=== PATIENT | female | born 1970 | race Caucasian/White ===

== ENCOUNTER 2023-09-01 16:55 | Emergency (ER) | payer BC, SELFPAY ==
--- NOTE | 2023-09-01 17:02 | ED_ITS ---
HPI - General Adult General Chief complaint: Urogenital Problems, Female Stated complaint: menstrual bleeding Time Seen by Provider: 09/01/23 16:56 History of Present Illness HPI narrative: Very pleasant 53-year-old female who has a past medical history notable for breast cancer (diagnosed 2 years ago, apparently had an isolated lump in 1 breast. Was estrogen receptor positive. Patient elected for bilateral mastectomy and hormonal therapy. Did not require radiation or chemo. Thought to be in remission. Due for her next 6 month check in November). She did develop what she thought was menopause 2 years ago after she started doing hormone shots for her breast cancer. She has not had a period in over a year. She is Otherwise healthy. She presents to the ER today with heavy reddish vaginal bleeding ongoing now for 4 days. She does note that her [place] [address] daughters came home a few days ago and they were having menstrual cycle so she wonders if [place] exposure to them might have triggered. For her. She has developed up. That is much heavier than normal for her. Started on Tuesday. She soaking through at least 1 pad per hour. In addition to that she had been having a lot of pelvic cramping with that is actually getting better today. She is starting to feel little bit lightheaded and a little bit weak. 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 No other unusual bleeding or bruising. No history of coagulopathy. She is not anticoagulated. she is on tamoxifen. No history of cervical cancer. Family history of breast cancer and endometrial cancer. Related Data Previous Rx's Medication Instructions Recorded tranexamic acid 650 mg tablet 1,300 mg (2 x 650 mg) PO TID #20 09/01/23 tabs Allergies Allergy/AdvReac Type Severity Reaction Status Date / Time No Known Drug Allergies Allergy Verified 09/01/23 17:10 PFSH PFSH Social History Smoking Status: Never smoker Do you use any of these nicotine containing products: None How often do you have a drink containing alcohol: never How often do you have six or more drinks on one occasion: Never AUDIT-C Alcohol total score: 0 Non-prescribed substance use: denies use Exam Narrative: Exam Narrative: Constitutional: Appears well-developed and well-nourished. Alert. Conversant. Non toxic. HENT: Head: Atraumatic. Nose: Nose normal. Mouth/Throat: Oral mucosa is clear and moist. no trismus. Eyes: Conjunctivae normal. EOM normal. Pupils equal, round, and reactive to light. No scleral icterus. Neck: Normal range of motion. Neck supple. No tracheal deviation present. Cardiovascular: Normal rate, regular rhythm. No gallop. No friction rub. No murmur heard. Pulmonary/Chest: Effort normal. No stridor. No respiratory distress. No wheezes. No rales. No rhonchi . Abdominal: Soft. No distension. No mass. No tenderness. No rebound. No guarding. Musculoskeletal: RUE: Normal range of motion. No tenderness. No deformity LUE: Normal range of motion. No tenderness. No deformity RLE: Normal range of motion. No edema. No tenderness. No deformity LLE: Normal range of motion. No edema. No tenderness. No deformity Pelvic: Performed with female solar system installer. Normal external genitalia. Normal vaginal mucosa. Cervix closed. No bleeding. No cervicitis. Neurological: Alert and oriented to person, place, and time. Normal strength. CN II-VII intact. No sensory deficit. GCS eye subscore is 4. GCS verbal subscore is 5. GCS motor subscore is 6. Normal coordination Skin: Perhaps palm and tongue are slightly pale but overall warm and brisk cap refill. No pallor or mottling. Skin is warm and dry. No rash noted. No pallor. Normal capillary refill. Psychiatric: Normal mood. Normal affect. Const: Vital Signs, click to edit/add: Vital Signs - 24 hr 09/01/23 17:05 Temperature 98.4 F Pulse Rate [Right Pulse Oximeter] 93 Respiratory Rate 16 Blood Pressure [Ri ght Upper Arm] 165/95 H Pulse Oximetry 98 Oxygen Delivery Me thod Room Air Course Vital Signs Vital signs: Initial Vital Signs Temperature 98.4 F 09/01/23 17:05 Temperature Source Temporal Artery Scan 09/01/23 17:05 Pulse Rate 93 09/01/23 17:05 Pulse Rhythm Regular 09/01/23 17:05 Pulse Strength 3+ Normal 09/01/23 17:05 Respiratory Rate 16 09/01/23 17:05 Blood Pressure 165/95 H 09/01/23 17:05 Blood Pressure Mean 118 H 09/01/23 17:05 Blood Pressure Position Sitting 09/01/23 17:05 Pulse Oximetry 98 09/01/23 17:05 Oxygen Delivery Method Room Air 09/01/23 17:05 Vital Signs Temperature 98.4 F 09/01/23 17:05 Pulse Rate 93 09/01/23 17:05 Respiratory Rate 16 09/01/23 17:05 Blood Pressure 165/95 H 09/01/23 17:05 Pulse Oximetry 98 09/01/23 17:05 Oxygen Delivery Method Room Air 09/01/23 17:05 Temperature 98.4 F 09/01/23 17:05 Pulse Rate 93 09/01/23 17:05 Respiratory Rate 16 09/01/23 17:05 Blood Pressure 165/95 H 09/01/23 17:05 Pulse Oximetry 98 09/01/23 17:05 Oxygen Delivery Method Room Air 09/01/23 17:05 Medications Administered Medications: Discontinued Medications Generic Name Dose Route Start Last Admin Trade Name Freq PRN Reason Stop Dose Admin Tranexamic Acid 1,000 mg 09/01/23 20:07 09/01/23 20:25 Tranexamic Acid 100 Mg/Ml Inj IV 09/01/23 20:08 1,000 mg ONCE ONE Administration Medical Decision Making MDM Narrative Medical decision making narrative: 53-year-old female with a history of breast cancer status post bilateral mastectomy and on tamoxifen therapy, presenting to the ER today with a 4 day history of heavy vaginal bleeding. She has stopped having menstrual cycles a couple of years ago after she initiated her hormone therapy for her breast cancer. She does endorse fairly heavy vaginal bleeding soaking through 1 pad every hour for the past couple of days. Fortunately she is hemodynamically stable and well-appearing. Her mental status is normal and her skin is pink and well perfused. Laboratory testing shows hemoglobin in the low normal range at 12.3. She is not thrombocytopenic or coagulopathic. No anticoagulant use. No family history of bleeding disorders. Pelvic exam confirms endocervical source of blood. No evidence for any cervical lesions or cancers. Pelvic ultrasound does confirm a very thickened endometrial lining at 22 mm. Discussed with on-call radio sportscaster, Dr. Forrester. At this point she and I agree that the patient is hemodynamically stable and safe to discharge from the ER tonight but will need close outpatient follow up in the community placement worker clinic. She will likely need endometrial sampling to rule out endometrial cancer as a cause for bleeding. At this point will hold off on hormonal therapy to treat the vaginal bleeding since she does have estrogen sensitive breast cancer history and we do not know the progesterone receptor status of her breast cancer. Instead will treat with TXA. 1 g IV given here in the ER. She will continue TXA 1.3 g p.o. t.i.d. for vaginal bleeding. Until follow-up with community placement worker. [facility] will contact her tomorrow morning to arrange that follow-up appointment. Precautions for return to the ER reviewed. Lab Data Labs: Lab Results 09/01/23 Range/Units 17:30 WBC 6.40 (4.50-11.00) K/uL RBC 4.22 (4.00-5.20) m/uL Hgb 12.3 (12.0-16.0) gm/dL Hct 37.2 (33.0-51.0) % MCV 88 (80-100) fL MCH 29 (26-34) pg MCHC 33 (32-36) gm/dL RDW Coeff of Dorcas 13.1 (11.5-15.5) % Plt Count 205 (140-440) K/uL Neut % (Auto) 60.4 (42.0-72.0) % Lymph % (Auto) 29.2 (20-44) % Antelope % (Auto) 7.3 (0.0-11.0) % Eos % (Auto) 2.3 (0.0-7.0) % Baso % (Auto) 0.6 (0.0-3.0) % Neut # (Auto) 3.86 (1.7-7.0) K/uL Lymph # (Auto) 1.87 (0.90-2.90) K/uL Antelope # (Auto) 0.50 (0.00-0.90) K/UL Eos # (Auto) 0.15 (0.00-0.50) K/uL Baso # (Auto) 0.04 (0.00-0.30) K/uL Abs Immat Gran (auto) 0.01 (0.00-0.30) K/uL Imm/Tot Granulo (auto) 0.2 % INR 0.91 (0.91-1.10) HCG, Qual Negative (Negative) Blood Type A Negative Antibody Screen NEGATIVE Imaging Data US Pelvic: Attestation: I have reviewed the pertinent imaging results. Radiologist's impression: IMPRESSION: 1. Abnormally thickened vascular endometrium measuring 22 mm. This could be due to malignancy or hyperplasia. Recommend gynecologic consult. 2. Uterus is prominent in size for patient age. Subserosal fibroid in the uterine fundus. 3. Nonvisualization of the right ovary. Discharge Plan Discharge Clinical Impression: Abnormal uterine bleeding Patient Disposition: Home, Self-Care Condition: Stable Instructions: Abnormal (Dysfunctional) Uterine Bleeding (ED) Additional Instructions: As we discussed, please come back to the ER right away if you have any problems- especially if you have heavier bleeding, worsening lightheaded or dizziness, fever, or if you have any other concerns You should receive a phone call tomorrow morning from the gynecology clinic to set up an appointment to be seen tomorrow for a recheck. You will likely need an endometrial biopsy and further testing. If you do not receive a phone call by noon tomorrow, you can call the [facility] [phone] to arrange a follow-up. You can use tranexamic acid to help slow the bleeding until your follow-up. Prescriptions: New tranexamic acid 650 mg tablet 1,300 mg PO TID Qty: 20 0RF Follow Up/Referrals: Any Anne MD [Primary Care Provider] - Stand Alone Forms: [employer] Info Instructions
[2023-09-01 17:05] VITALS: BP 165/95; PULSE 93; RESP 16; TEMP 36.9; O2SAT 98; BMI 32.3
--- NOTE | 2023-09-01 17:09 | US_ITS ---
Patient: DAQUAN SOLANO CORDELL Facility:?[facility] Patient ID:?[id number] Site Patient ID:?[id number] Site :?[id number] Study:?US-Pelvis PELVIS TV-09/01/2023 6:11:10 PM Ordering Physician:?INNA BHANDARI M.D. Final Report: INDICATION: Postmenopausal bleeding. COMPARISON: None. TECHNIQUE: 2D mora scale and color Doppler images were acquired of the pelvis using a transvaginal approach. FINDINGS: The uterus is retroverted in position and measures 10.0 cm in length by 6.1 cm in AP diameter by 5.9 cm in transverse dimension. There is a 2.2 cm subserosal fibroid in the uterine fundus. The endometrial lining measures 22 mm in composite thickness with scattered vascularity. There is a small amount of complex fluid within the fundal endometrium. The right ovary was not visualized. The left ovary measures 3.3 x 1.8 x 2.4 cm. No free fluid in the pelvic cul-de-sac. IMPRESSION: 1. Abnormally thickened vascular endometrium measuring 22 mm. This could be due to malignancy or hyperplasia. Recommend gynecologic consult. 2. Uterus is prominent in size for patient age. Subserosal fibroid in the uterine fundus. 3. Nonvisualization of the right ovary. Dictated by Amy Acosta MD @ 09/01/2023 7:26:03 PM Signed by:?Aym Acosta MD @09/01/2023 7:26:03 PM (Electronic Signature)
[2023-09-01 17:51] LABS: Basophils Absolute Auto 0.04 K/uL (0.00-0.30); Basophils Percent Auto 0.6 % (0.0-3.0); Eosinophils Absolute Auto 0.15 K/uL (0.00-0.50); Eosinophils Percent Auto 2.3 % (0.0-7.0); Hematocrit 37.2 % (33.0-51.0); Hemoglobin* 12.3 gm/dL (12.0-16.0); Immature Granulocytes Abs Auto 0.01 K/uL (0.00-0.30); Immature Granulocytes Pct Auto 0.2 %; Lymphocytes Absolute Auto 1.87 K/uL (0.90-2.90); Lymphocytes Percent Auto 29.2 % (20-44); Mean Corpuscular HGB Conc 33 gm/dL (32-36); Mean Corpuscular Hemoglobin 29 pg (26-34); Mean Corpuscular Volume 88 fL (80-100); Monocytes Percent Auto 7.3 % (0.0-11.0); Neutrophils Absolute Auto 3.86 K/uL (1.7-7.0); Neutrophils Percent Auto 60.4 % (42.0-72.0); Platelet Count* 205 K/uL (140-440); RDW Coefficient of Variation % 13.1 % (11.5-15.5); Red Blood Count 4.22 m/uL (4.00-5.20)
[2023-09-01 18:00] LABS: Slide Review Reflex No
[2023-09-01 18:09] LABS: INR 0.91 (0.91-1.10); Prothrombin Time 12.8 Seconds
[2023-09-01 18:24] LABS: HCG Qualitative Serum* Negative (Negative)
[2023-09-01] MEDS: TRANEXAMIC ACID 100 MG/ML INJ 1000 MG IV (20:25)
== END 2023-09-01 20:47 | disposition home or self-care (01) ==
PROVIDERS: Emergency Provider Emergency Medicine; PCP Family Medicine
DX: N93.9 Abnormal uterine and vaginal bleeding, unspecified (principal)
CPT/HCPCS: 36415; 76830; 84703; 85025; 85610; 86850; 86900; 86901; 99283

== ENCOUNTER 2023-09-20 06:54 | Day surgery (SDC) | payer BC, SELFPAY ==
--- OUTSIDE RECORDS SUMMARY | 2023-09-20 06:56 | XMS_ITS | Encounter Summary ---
Author Name Unknown Organization [facility] Address [address] [place] [address] Care Team Providers Care Rod Filler Name Role Phone Elsewhere, Pcp Primary Care Provider Unavailabl e Reason for Visit * Reason Comments Arm Pain Left bicep/shoulder pain. Left bicep is bigger compared to right side. 10/16 pain Encounter Details Date Type Department Care Team (Late st Contact Info) Description 06/18/2023 9:58 AM INSURANCE ACCOUNT ASSISTANT - 06/18/2023 10:39 AM INSURANCE ACCOUNT ASSISTANT Emergency [facility] [address] [place] [phone] Kenyon Cagle, ERIBERTO, C.N.P., D.N.P. [address] [place] [phone] Pain Arm Left (Primary Dx) Discharge Disposition: Acute Care Hospital Social History Tobacco Use Types Packs/Day Years Used Date Smoking Tobacco: Never Smokeless Tobacco: Never Alcohol Use Standard Drinks/Week Comments Yes 0 (1 standard drink = 0.6 oz pure alcohol) Once in awhile - if we go out to dinner Humiliation, Afraid, Rape, and Kick questionnair e Answer Date Recorded Within the last year, have y ou been afraid of your partner or ex-partner? No 11/23/2021 Within the last year, have y ou been humiliated or emotionally abused in other ways by your partner or ex-partner? No Within the last year, have y ou been kicked, hit, slapped, or otherwise physically hurt by your partner or ex-partner? No 11/23/2021 Within the last year, have y ou been raped or forced to have any kind of sexual activity by your partner or ex-partner? No 11/23/2021 Social Connection and Isolation Panel [NHANES] A nswer Date Recorded In a typical week, how many times do you talk on the phone with family, friends, or neighbors? Once a week 11/23/2021 How often do you get togethe r with friends or relatives? Once a week 11/23/2021 How often do you attend alevism or temple serv ices? Patient declined 11/23/2021 Do you belong to any clubs o r organizations such as alevism groups, unions, fraternal or athletic groups, or school groups? No 11/23/2021 How often do you attend meet ings of the clubs or organizations you belong to? Patient declined 11/23/2021 Are you , , di vorced, , never , or living with a partner? 11/23/2021 AUDIT-C Answer Date Recorded Q1: How often do you have a drink containing alc ohol? 2-4 times a month 11/23/2021 Q2: How many drinks containi ng alcohol do you have on a typical day when you are drinking? 1 or 2 11/23/2021 Q3: How often do you have si x or more drinks on one occasion? Never 11/23/2021 Overall Financial Resource Strain (CARDIA) Answe r Date Recorded How hard is it for you to pa y for the very basics like food, housing, medical care, and heating? Not very hard 11/23/2021 [facility] - Occupational Stress Questionnaire Answer Date Recorded Do you feel stress - tense, restless, nervous, or anxious, or unable to sleep at night because your mind is troubled all the time - these days? Only a little 11/23/2021 Exercise Vital Sign Answer Date Recorde d On average, how many days pe r week do you engage in moderate to strenuous exercise (like a brisk walk)? 4 days 11/23/2021 On average, how many minutes do you engage in exercise at this level? 10 min 11/23/2021 Hunger Vital Sign Answer Date Recorded Within the past 12 months, y ou worried that your food would run out before you got the money to buy more. Never true 11/24/19 22 Within the past 12 months, t he food you bought just didn't last and you didn't have money to get more. Never true 11/23/2021 PRAPARE - Transportation Answer Date Re corded In the past 12 months, has l ack of transportation kept you from medical appointments or from getting medications? No 11/06 In the past 12 months, has l ack of transportation kept you from meetings, work, or from getting things needed for daily living? No 11/23/2021 Housing Stability Vital Sign Answer Babatunde e Recorded In the last 12 months, was t here a time when you were not able to pay the mortgage or rent on time? No 11/23/2021 In the last 12 months, how many places have you lived? 1 11/23/2021 In the last 12 months, was t here a time when you did not have a steady place to sleep or slept in a halfway (including now)? No 11/23/2021 Nutrition Answer Date Recorded Nutrition: EVOO Fat Source Yes 11/23 On average, how many serving s of fruits and vegetables do you eat per day (serving size is equal to 1 cup or approximately the size of a tennis ball)? 2-3 11/23/2021 Dental Answer Date Recorded Dental: Regular Dentist No 09/15/19 21 Employment Answer Date Recorded Employment status Employed and actively working without restrictions 11/23/2021 Education Answer Date Recorded What is the highest level of school you have completed or the highest degree you have received? Associate degree: academic program 11/23/2021 Sex and Gender Information Value Date Recorded Sex Assigned at Female 01/05/2021 12:58 PM CDT Gender Identity Female 11/18/2020 7:00 AM CDT Sexual Orientation Straight 09/10/2020 4: 34 PM CDT documented as of this encounter Last Filed Vital Signs Vital Sign Reading Time Taken Comments Blood Pressure 133/74 06/18/2023 10:37 AM INSURANCE ACCOUNT ASSISTANT Pulse 100 06/18/2023 10:37 AM INSURANCE ACCOUNT ASSISTANT Temperature 36.4 ??C (97.5 ??F) 06/18/2023 10:[address] Respiratory Rate 18 06/18/2023 10:37 AM INSURANCE ACCOUNT ASSISTANT Oxygen Saturation 99% 06/18/2023 10:07 AM INSURANCE ACCOUNT ASSISTANT Inhaled Oxygen Concentration - - Weight 91 kg (200 lb 9.9 oz) 06/18/2023 10:07 AM INSURANCE ACCOUNT ASSISTANT Height - - Body Mass Index 31.6 05/12/2023 2:17 PM INSURANCE ACCOUNT ASSISTANT documented in this encounter Medications at Time of Discharge Medication Sig Dispensed Refills Start Date End Date B complex-vitamin (SUPER B-50) capsule Take 1 capsule by mouth daily. 07/28/2020 cholecalciferol (VITAMIN D3) 50 mcg (2,000 Unit) capsule Take 2,000 Units by mouth daily. 06/16/2020 cyanocobalamin (VITAMIN B12) 1,000 mcg tablet Take 1,000 mcg by mouth daily. HERBAL DRUGS ORAL Take 2 tablets by mouth daily. Black Seed Oil MAGNESIUM ORAL Take 1 tablet by mouth daily. omega 9-ibl-avo-fish oil 1,000 mg (120 mg-180 mg) capsule Take 1 capsule by mouth daily. 07/28/2020 tamoxifen (NOLVADEX) 20 mg tabletIndications:Malign ant Neoplasm Of Breast Female Right (HCC) Take 2 tablets (40 mg total) by mouth daily. 180 tablet 3 04/25/2023 documented as of this encounter ED Notes * Kenyon Cagle APRN, C.N.P., D.N.P. - 06/18/2023 10:03 AM CST Images from the original note were not included. CHIEF COMPLAINT/REASON FOR VISIT Arm Pain (Left bicep/shoulder pain. Left bicep is bigger compared to right side. 10/16 pain) HISTORY OF PRESENT ILLNESS Patient with a history of breast cancer status post bilateral removal with subsequent reconstruction, heart murmur, obesity presents to the emergency department with complaints of shoulder pain. PATIENT STATES SHE WAS BOXING FOR 30 MINUTES ON TUESDAY WHILE WORKING OUT. SHE IS DONE THIS IN THEPAST AND NEVER HURT HER SHOULDER. THE REST OF TUESDAY AND TUESDAY HER SHOULDER ACTUALLY FELT OKAY, AND THEN TUESDAY AFTERNOON AND EVENING SHE NOTICED that her left shoulder/axillary region was painfuland she was having some difficulty raising her arm. Tuesday she would increase in pain and she was having trouble lifting the Sanchez. It continued until today when she noticed some swelling on the left.Patient does have a history of lymphedema but this is always been bilateral in her left arm patientstates is larger than her right arm. Most of the pain seems to be centered in the axillary region and then down the inner arm not the actual shoulder joint itself. Patient denies any fever, chills, sweats or any other constitutional symptoms. History provided by: Patient patient registration specialist needed/used: no REVIEW OF SYSTEMS Constitutional: Negative for chills, diaphoresis, fatigue and fever. HENT: Negative for sinus pressure and sore throat. Respiratory: Negative for cough, chest tightness and shortness of breath. Cardiovascular: Negative for chest pain. Gastrointestinal: Negative for abdominal pain, constipation, diarrhea, nausea and vomiting. Genitourinary: Negative for dysuria, frequency and urgency. Musculoskeletal: Positive for extremity pain. Negative for arthralgias and myalgias. Skin: Negative for rash. Neurological: Negative for dizziness, weakness and headaches. Hematological: Negative for adenopathy. Does not bruise/bleed easily. All other systems reviewed and are negative. Allergies Reviewed in medical record Current Medications Reviewed in Medical Record. PAST HISTORY Medical Past Medical History: Diagnosis Date Cancer Breast Personal History 07/18/2020 Malignant Primary Neoplasm (Unknown Site) Unspecified (HCC) Murmur Heart Patient Active Problem List Diagnosis Malignant Neoplasm Of Breast Female Right (HCC) Absence Of Breast Acquired Bilateral Murmur Heart Obesity Body Mass Index 30-39.9 Adult Surgical Past Surgical History: Procedure Laterality Date BIOPSY SENTINEL LYMPH NODE AXILLARY - PREOPERATIVE LYMPHOSCINTIGRAPHY N/A 11/19/2020 Procedure: RIGHT AXILLARY SENTINEL LYMPH NODE BIOPSY, PREOPERATIVE LYMPHOSCINTIGRAPHY; Surgeon: Mary Chacon D.O.; Location: [facility] OR INJECTION FAT Bilateral 11/27/2021 Procedure: INJECTION FAT FROM FLANKS TO BILATERAL BREASTS.; Surgeon: Laura Fernando M.B.B.S.; Location: [facility] OR KNEE ARTHROSCOPY Right MASTECTOMY - SKIN SPARING Bilateral 11/19/2020 Procedure: BILATERAL SKIN-SPARING MASTECTOMY.; Surgeon: Mary Chacon D.O.; Location: [facility] RECONSTRUCTION BREAST - IMPLANT Bilateral 11/27/2021 Procedure: RECONSTRUCTION BREAST, IMPLANT, Galaflex placement; Surgeon: Laura Fernando M.B.B.S.; Location: [facility] RECONSTRUCTION BREAST WITH TISSUE RESTAURANT MANAGER Bilateral 11/19/2020 Procedure: RECONSTRUCTION BREAST, TISSUE RESTAURANT MANAGER; Surgeon: Laura Fernando M.B.B.S.; Location: [facility] REMOVAL TISSUE RESTAURANT MANAGER - BREAST Bilateral 11/27/2021 Procedure: REMOVAL TISSUE RESTAURANT MANAGER BREAST.; Surgeon: Laura Fernando M.B.B.S.; Location: [facility] OR Family Reviewed in Medical Record Social History Social History Tobacco Use Smoking status: Never Smokeless tobacco: Never Substance Use Topics Alcohol use: Yes Comment: Once in awhile - if we go out to dinner Social History Substance and Sexual Activity Drug Use Not Currently OBJECTIVE Initial Vital Signs / Weights Initial Vitals [06/18/23 1007] Temperature (!) 35.8 ??C Pulse Rate 105 Heart Rate Resp Rate 18 Blood Pressure 140/84 SpO2 99 % Pain Score 6 Wt Readings from Last 3 Encounters: 06/18/23 91 kg 05/12/23 90.3 kg 10/14/22 91.9 kg PHYSICAL EXAMINATION Constitutional: Nursing note and vitals reviewed. No distress. HENT: Nose: No nasal discharge. Mouth/Throat: Oropharynx is clear and moist. Mucous membranes are moist. No tonsillar exudate. Eyes: Conjunctivae are normal. Pupils are equal, round, and reactive to light. Neck: Neck supple. Cardiovascular: Normal rate. Pulses are strong and palpable. Capillary refill: takes less than 3 seconds Pulmonary/Chest: Effort normal. No respiratory distress. Musculoskeletal: General: Normal range of motion. Cervical back: Normal range of motion and neck supple. Comments: Empty can test is negative. Patient has 5/5 strength in the deltoid biceps triceps. Patient has some tenderness with supination pronation of the left hand. She is tenderness to palpation tothe left axillary region going down to the inner upper arm alf down. Questionable discernible swelling on the left as compared to the right. Lymphadenopathy: She has no cervical adenopathy. Neurological: Alert and oriented to person, place, and time. Skin: Skin is warm, dry and intact. Psychiatric: She has a normal mood and affect. DIAGNOSTICS ED COURSE ED Course as of 06/18/23 1052 Sat Jun 18, 2023 1003 I performed my initial evaluation of the patient. We discussed Emergency Department course including testing, treatment, and potential disposition based on findings. 1037 From tele paperwork signed, transferred by private vehicle to [facility]. Final Diagnoses: as of 06/18/23 1052 Pain Arm Left INTERVENTIONS Medications - No data to display MEDICAL DECISION MAKING Assessment and Plan Patient presents to the emergency department with complaints of left shoulder pain however it is seems to be more in the left axillary region with radiation down her arm. She does not appear to have any shoulder joint pain. She does have some problems with pronation supination of the arm. Patient does have a history of breast cancer with bilateral mastectomies and then reconstruction on tamoxifen. Differential diagnosis includes but not limited to osteoarthritis, overuse injury, bicipital tendinitis, rotator cuff injury, DVT, or others. Based on her history I am somewhat concerned for a DVT and I feel this needs to be ruled out with an ultrasound. Unfortunately we do not have ultrasound capability in our emergency department. I did discuss the case with [facility] as the patient requested to be transferred there, however they state they are unable to do this due to EMTALA and they would send the patient back to us after her ultrasound for definitive management. I discuss this with the patient, and she elected to be transferred to [facility]. I did discuss the case with Dr. Fox who graciously accepted the patient in transfer. Patient is stable, nontoxic, and I am comfortable sending the patient by private vehicle.. DIFFERENTIAL DIAGNOSES As above. PROBLEMS ADDRESSED THIS VISIT As above. Care is significantly affected by the following Social Determinants of Health: none. I reviewed the following external records: primary care records, prior outpatient labs, prior outpatient radiology tests and inpatient records. The following tests were considered but ultimately not performed: none. Escalation of care, including admission/observation, considered: none. Care Handoff Row Name 06/18/23 1029 06/18/23 1015 Care Handoff Type of Handoff Report to hospital or facility patient is being transferred to Report to hospital or facility patient is being transferred to Provider's Name Dr. Tamiko Schneider External Hospital or Facility [facility] DIAGNOSIS Final diagnoses: [M79.602] Pain Arm Left DISPOSITION Transfer to [facility] Emergency Department (ultrasound) Kenyon Cagle, JAYLA, IT WEB DEVELOPMENT CONSULTANT, DOPE MIXER-C, AGACNP-BC, ENP-C Emergency Medicine CagleKenyon ames APRN, C.NDenia, D.N.P. 06/18/23 1052 RANCE ACCOUNT ASSISTANT documented in this encounter Plan of Treatment Upcoming Encounters Date Type Department Care Team (Latest Contact Info) Description 11/17/2023 9:45 AM CDT Clinical Communication Virtual Review in [place], [place] [address] [place] [phone] 11/21/2023 9:40 AM CDT Office Visit Department of Oncology in [place], [place] [address] [place] [phone] Edgar Salcedo APRN, C.N.Devang., M.S.N. [address] [place] [phone] Scheduled Procedures Name Priority Associated Diagnoses Date/Ti me RECONSTRUCTION BREAST WITH D EEP INFERIOR EPIGASTRIC SOURCING INTERNSHIP FLAP Absence Of Breast Acquired Bilateral REMOVAL TISSUE RESTAURANT MANAGER BREAST Absence Of Breast Acquired Bilateral documented as of this encounter Visit Diagnoses Diagnosis Pain Arm Left- Primary documented in this encounter Care Teams Rod Filler Relationship Specialty Start Date End Date Elsewhere, Pcp PCP - General Internal Medicine 06/18/23 documented as of this encounter
--- OUTSIDE RECORDS SUMMARY | 2023-09-20 06:56 | XMS_ITS ---
Author Name Unknown Organization [facility] Address [address] [place] [address] Care Team Providers Care Electrical Sign Wirer Helper Name Role Phone Unavailable Unavailable Unavailable Surgery Details Not on file Complications Check Surgery Details section. Procedure Estimated Blood Loss Check Surgery Details section. Procedure Findings Check Surgery Details section. Procedure Specimens Taken Check Surgery Details section.
--- OUTSIDE RECORDS SUMMARY | 2023-09-20 06:56 | XMS_ITS | Referral Summary ---
Author Name Unknown Organization [facility] Address [address] [place] [address] Care Team Providers Care Wood Drill Operator Name Role Phone Elsewhere, Pcp Primary Care Provider Unavailabl e Source Comments Patient records contain information from all sites at [facility]. For routine questions regarding patient records, call [phone] during business hours, M-F 8:00 AM - 5:00 PM Central Time. Record requests for emergency care only can be directed to [phone] at any time.[facility] Allergies No known active allergies Medications Medication Sig Dispensed Refills Start Date End Date Status cholecalciferol (VITAMIN D3) 50 mcg (2,000 Unit) capsule Take 2,000 Units by mouth daily. 06/16/2020 Active B complex-vitamin (SUPER B-50) capsule Take 1 capsule by mouth daily. 07/28/2020 Active omega 4-igo-shu-fish oil 1,000 mg (120 mg-180 mg) capsule Take 1 capsule by mouth daily. 07/28/2020 Active MAGNESIUM ORAL Take 1 tablet by mouth daily. Active cyanocobalamin (VITAMIN B12) 1,000 mcg tablet Take 1,000 mcg by mouth daily. Active tamoxifen (NOLVADEX) 20 mg tabletIndications:Ma lignant Neoplasm Of Breast Female Right (HCC) Take 2 tablets (40 mg total) by mouth daily. 180 tablet 3 04/25/2023 Active HERBAL DRUGS ORAL Take 2 tablets by mouth daily. Black Seed Oil Active cyclobenzaprine (FLEXERIL) 10 mg tablet Take 1 tablet (10 mg total) by mouth every 8 (eight) hours as needed for muscle spasms for up to 15 doses. 15 tablet 06/18/2023 Active Active Problems Problem Noted Date Diagnosed Date Obesity Body Mass Index 30-39.9 Adult 05/05/2021 Absence Of Breast Acquired Bilateral 02/03/2021 Overview: Added automatically from request for surgery [id number] Malignant Neoplasm Of Breast Female Right 2020 Cancer Staging:Pathologic stage from 11/19/2020:Stage IA(pT1c, pN0, cM0, G1, ER+, NJ+, HER2-) - Signed by Edgar Salcedo APRN, C.N.P., M.S.N. on 10/15/2022 Overview: Added automatically from request for surgery [id number] [facility] Immunizations Name Administration Dates Next Due Influenza (IM) Preservative Free 021(Deferred: Other - will get locally),04/17/2009 RZV (SHINGRIX) 03/04/2021(Deferred: Other - will get locally) SARS-COV-2 (COVID-19) - PFIZ ER (Discontinued)(12 years or older) 03/04/2021(Deferred: Other - plans to get soon) Tdap 06/10/2020,10/30/2009 Social History Tobacco Use Types Packs/Day Years Used Date Smoking Tobacco: Never Smokeless Tobacco: Never Tobacco Cessation:Counseling Given: Not Answered Alcohol Use Standard Drinks/Week Comments Yes 0 [...] week 11/23/2021 How often do you attend moravian or jain serv ices? Patient declined 11/23/2021 Do you belong to any clubs o r organizations such as moravian groups, unions, fraternal or athletic groups, or [...] care, and heating? Not very hard 11/23/2021 [facility] - Occupational Stress Questionnaire Answer Date [...] place to sleep or slept in a prison (including now)? No 11/23/2021 Nutrition Answer Date [...] Orientation Straight 09/10/2020 4: 34 PM CDT Last Filed Vital Signs Vital Sign Reading Time Taken Comments Blood Pressure 149/78 06/18/2023 11:15 AM MULTIMEDIA JOURNALIST Pulse 94 06/18/2023 11:15 AM MULTIMEDIA JOURNALIST Temperature 36.2 ??C (97.2 ??F) 06/18/2023 11:[address] Respiratory Rate 20 06/18/2023 11:15 AM MULTIMEDIA JOURNALIST Oxygen Saturation 98% 06/18/2023 11:15 AM MULTIMEDIA JOURNALIST Inhaled Oxygen Concentration - - Weight 91 kg (200 lb 9.9 oz) 06/18/2023 11:14 AM MULTIMEDIA JOURNALIST Height 169.7 cm (5' 6.81) 05/12/2023 2:17 PM CS T Body Mass Index 31.6 05/12/2023 2:17 PM MULTIMEDIA JOURNALIST Plan of Treatment Upcoming Encounters Date Type Department Care Team (Latest Contact Info) Description 11/17/2023 9:45 AM CDT Clinical Communication Virtual Review in [place], [place] [address] [place] [address] 11/21/2023 9:40 AM CDT Office Visit Department of Oncology in [place], [place] [address] [place] [phone] Edgar Salcedo APRN, C.N.P., M.S.N. [address] [place] [phone] Scheduled Procedures Name Priority Associated Diagnoses Date/Ti me RECONSTRUCTION BREAST WITH D EEP INFERIOR EPIGASTRIC DE ICER KIT ASSEMBLER FLAP Absence Of Breast Acquired Bilateral REMOVAL TISSUE ROUTE DELIVERY CLERK BREAST Absence Of Breast Acquired Bilateral Medical Devices Implanted Type Area Mexican Food Cook Device Identifier Shelf Expiration Date Model / Serial / Lot Memorygel Smooth Round High Profile 800 Cc Silicone Breast Implant Implanted:Qt y: 1 on 11/27/2021 at [facility] Breast Implant Right: Breast [employer] [id number] 08/18/2026 350-8004 [id number] / [id number] / [id number] Memorygel Smooth Round High Profile 800 Cc Silicone Breast Implant Implanted:Qt y: 1 on 11/27/2021 at [facility] Breast Implant Left: Breast [employer] [id number] 08/18/2026 350-8004 BC / [id number] / [id number] Clp Hrzn Ti 6 Clp Sm Red - [id number] Implanted:Qt y: 1 on 11/19/2020 by Mary Chacon D.Michael at [facility] Hardware e.g. pins/screws /rods [employer] / / Clp Hrzn Ti 6 Clp Sm Red - [id number] Implanted:Qt y: 1 on 11/19/2020 by Mary Chacon D.O. at [facility] Hardware e.g. pins/screws /rods [employer] / / Clp Hrzn Ti 6 Clp Sm Red - [id number] Implanted:Qt y: 1 on 11/19/2020 by Mary Chacon D.O. at [facility] Hardware e.g. pins/screws /rods [employer] / / Clp Hrzn Ti 6 Clp Sm Red - [id number] Implanted:Qt y: 1 on 11/19/2020 by Mary Chacon D.O. at [facility] Hardware e.g. pins/screws /rods [employer] / / Imaging Marker Imaging Marker Right: Breast Galaflex 3dr Scaffold Implanted:Qt y: 1 on 11/27/2021 at [facility] Mesh or Patch Bilateral : Breast Tepha [id number] 05/16/2025 [id number] / / [id number] Explanted Type Area Mexican Food Cook Device Identifier Shelf Expiration Date Model / Serial / Lot Exp Brst Ntr Tamara Mxt Rnd 700cc - [id number] - [id number] Implanted:Qty : 1 on 11/19/2020 by Laura Fernando M.B.B.S. at [facility] Explanted:Qty : 1 on 11/27/2021 at [facility] Breast Implant Left: Breast [employer] 01/01/2024 133S-MX-1 5-T / [id number] / Exp Brst Ntr Tamara Mxt Rnd 700cc - [id number] - [id number] Implanted:Qty : 1 on 11/19/2020 by Laura Fernando M.B.B.S. at [facility] Explanted:Qty : 1 on 11/27/2021 at [facility] Breast Implant Right: Breast [employer] 09/20/2024 133S-MX-1 5-T / [id number] / Procedures Procedure Name Priority Date/Time Associated Diagnosis Comments EXTI GLUCOSE, RANDOM, S/P Routine 07/22/2021 9:05 AM CDT EXTI LIPID PANEL W REFLEX MEASURED LDL Routine 07/22/2021 9:05 AM CDT BBF SOURCE PROFILE RAPID Routine 11/19/2020 2:14 PM CDT OUTSIDE MG MAMMOGRAM Routine 07/15/2020 8:20 AM MULTIMEDIA JOURNALIST from Last 3 Months or Most Recently Relevant to Health Maintenance Results * BB Source Profile Rapid (11/19/2020 2:14 PM CDT) HCV Ab Screen Patient Source, S Negative Negative 11/19/2020 9:47 PM CDT [facility] Comment:Hpsivi-vr-nqbxjz rat io is <1.00. HBs Antigen Patient Source, S Negative Negative 11/19/2020 9:29 PM CDT [facility] HIV-1/-2 Ag and Ab PS, P Negative Negative 11/19/2020 8:59 PM CDT [facility] Comment: Negative result does not rule out HIV infection. If exposure to HIV infection occurred <14 days ago, contact the laboratory to request addition of HIV-1 RNA detection / quantification test (HIVQN). Blood (Blood, Venous) 11/19/2020 2:14 PM CDT 11/19/2020 6:19 PM CDT Narrative [facility] - 11/19/2020 9:47 PM CDT Specimen Information: Specimen ID: [id number] Specimen Type: Blood Specimen Collection Start Date: 11/19/2020 ??2:14 PM Specimen Received Date: 11/19/2020 ??6:19 PM Specimen ID: [id number] Specimen Type: Blood Specimen Collection Start Date: 11/19/2020 ??2:14 PM Specimen Received Date: 11/19/2020 ??6:23 PM Mary Chacon D.O. LAB MICROBIOLOGY - B LOOD ORDERABLES [facility] [address] [place] [address] [facility] Dept. of Laboratory Medicine and Pathology [address] [place] [address] * BREAST SURGICAL SPECIMEN-Outside Mammogram (07/15/2020 8:20 AM MULTIMEDIA JOURNALIST) Narrative [facility] - 09/02/2020 7:34 PM CDT This order has been created and auto-finalized to support the import of outside images. If available, original interpretation can be found on the Media Tab in Chart Review, in Document Viewer, or as an image in QREADS. If a re-interpretation or overread is required please follow defined workflow. ?? Provider Not In System IMG BI PROCEDURES [facility] NA from Last 3 Months or Most Recently Relevant to Health Maintenance Advance Directives For more information, please contact: [phone] * Full Code (Latest Code Status on File) Date Activated Date Inactivated Comments 11/19/2020 6:37 AM 11/19/2020 9:25 PM Question Answer Comments Full Code: Not Discussed Due to: Not medically appropriate Care Teams Wood Drill Operator Relationship Specialty Start Date End Date Elsewhere, Pcp PCP - General Internal Medicine 06/18/23
--- OUTSIDE RECORDS SUMMARY | 2023-09-20 06:56 | XMS_ITS | Encounter Summary ---
Author Name Unknown Organization [facility] Address [address] [place] [address] Care Team Providers Care Sales And Leasing Consultant Name Role Phone Elsewhere, Pcp Primary Care Provider Unavailabl e Reason for Visit * Reason Comments Arm Swelling Pt arrives from [facility] [place]- needs ultrasound of left upper arm. Encounter Details Date Type Department Care Team (Late st Contact Info) Description 06/18/2023 12:55 PM LIFE AGENT - 06/18/2023 1:28 PM [facility] Emergency [facility] [address] [place] [address] Sue Rangel P.A.-C., P.A., M.S. [address] [place] [phone] Pain In Left Upper Arm (Primary Dx) Discharge Disposition: Home or Self Care Social History Tobacco Use Types Packs/Day Years [...] week 11/23/2021 How often do you attend baptism or orthodoxy serv ices? Patient declined 11/23/2021 Do you belong to any clubs o r organizations such as baptism groups, unions, fraternal or athletic groups, or [...] care, and heating? Not very hard 11/23/2021 [facility] - Occupational Stress Questionnaire Answer Date Recorded [...] place to sleep or slept in a usp (including now)? No 11/23/2021 Nutrition Answer Date [...] Comments Blood Pressure 149/78 06/18/2023 11:15 AM LIFE AGENT Pulse 94 06/18/2023 11:15 AM LIFE AGENT Temperature 36.2 ??C (97.2 ??F) 06/18/2023 11:[address] Respiratory Rate 20 06/18/2023 11:15 AM LIFE AGENT Oxygen Saturation 98% 06/18/2023 11:15 AM LIFE AGENT Inhaled Oxygen Concentration - - Weight 91 kg (200 lb 9.9 oz) 06/18/2023 11:14 AM LIFE AGENT Height - - Body Mass Index 31.6 05/12/2023 2:17 PM LIFE AGENT documented in this encounter Discharge Instructions * Discharge Instructions* Sue Rangel P.A.-C., Keiko M.S. - 06/18/2023 1:24 PM LIFE AGENT Recommend rest, hot and/or cold compresses, Tylenol (1000 mg every 8 hours as needed), and wazh-wnk-etojxuf lidocaine patches as needed for pain. Take steroid burst and muscle relaxers as prescribed. Follow up with primary care if symptoms do not improve with conservative treatment over the course of the next week. Return to the emergency department for any new or worsening symptoms. AGENT documented in this encounter Medications at Time of Discharge Medication Sig Dispensed Refills Start Date End Date B complex-vitamin (SUPER B-50) capsule Take 1 capsule by mouth daily. 07/28/2020 cholecalciferol (VITAMIN D3) 50 mcg (2,000 Unit) capsule Take 2,000 Units by mouth daily. 06/16/2020 cyanocobalamin (VITAMIN B12) 1,000 mcg tablet Take 1,000 mcg by mouth daily. cyclobenzaprine (FLEXERIL) 10 mg tablet Take 1 tablet (10 mg total) by mouth every 8 (eight) hours as needed for muscle spasms for up to 15 doses. 15 tablet 06/18/2023 HERBAL DRUGS ORAL Take 2 tablets by mouth daily. Black Seed Oil MAGNESIUM ORAL Take 1 tablet by mouth daily. omega 5-rmw-tbn-fish oil 1,000 mg (120 mg-180 mg) capsule Take 1 capsule by mouth daily. 07/28/2020 tamoxifen (NOLVADEX) 20 mg tabletIndications:Malig nant Neoplasm Of Breast Female Right (HCC) Take 2 tablets (40 mg total) by mouth daily. 180 tablet 3 04/25/2023 predniSONE (DELTASONE) 20 mg tablet Take 2 tablets (40 mg total) by mouth daily for 5 days. 10 tablet 06/18/2023 06/23/2023 documented as of this encounter ED Notes * Sue Rangel P.A.-C., PPete., M.S. - 06/18/2023 11:11 AM CST SUBJECTIVE CHIEF COMPLAINT/REASON FOR VISIT Arm Swelling (Pt arrives from [facility]- needs ultrasound of left upper arm. ) HISTORY OF PRESENT ILLNESS The patient is a 53-year-old female who presents to the emergency department at the direction of the [facility] for further workup of her left upper arm pain with an ultrasoundto rule out acute DVT. The patient states that on , 2 days ago, she did a boxing workout. On Tuesday, the patient started to develop pain in her left shoulder/upper arm that is worsened with ra nge of motion. Pain limits range of motion of her left upper extremity. The patient also endorses mild swelling in her left upper extremity that is worsened from her reported baseline.. The patient has a PMH significant for history of breast cancer s/p bilateral mastectomy with associated lymphedema. The patient is not chronically anticoagulated. History provided by: Patient and medical records REVIEW OF SYSTEMS Musculoskeletal: Positive for arthralgias, myalgias and extremity pain. Skin: Negative for wound. Allergic/Immunologic: Negative for immunocompromised state. Neurological: Negative for weakness and numbness. Hematological: Does not bruise/bleed easily. Psychiatric/Behavioral: The patient is not nervous/anxious. OBJECTIVE Initial Vitals Temperature 06/18/23 1115 36.2 ??C Pulse Rate 06/18/23 1115 94 Heart Rate -- Resp Rate 06/18/23 1115 20 Blood Pressure 06/18/23 1115 149/78 SpO2 06/18/23 1115 98 % Pain Score 06/18/23 1114 6 PHYSICAL EXAMINATION Constitutional: Nursing note and vitals reviewed. She appears not lethargic. No distress. HENT: Head: Normocephalic and atraumatic. No signs of injury. Mouth/Throat: Oropharynx is clear and moist. Mucous membranes are moist. Eyes: Conjunctivae are normal. Cardiovascular: Pulses are strong and palpable. Pulmonary/Chest: Effort normal. Musculoskeletal: General: Tenderness (left shoulder) present. No deformity or edema. Normal range of motion. Cervical back: Normal range of motion. Neurological: Alert and oriented to person, place, and time. No appreciable weakness or sensation changes in left upper extremity Skin: Skin is warm, dry and intact. Psychiatric: She has a normal mood and affect. Behavior is normal. ASSESSMENT/PLAN 53-year-old female who presents to the emergency department at the direction of the [facility] for further workup of her left upper arm pain with an ultrasound to rule out acute DVT. The patient states that on , 2 days ago, she did a boxing workout. On Tuesday, the patient started to develop pain in her left shoulder/upper arm that is worsened with range of motion. Pain limits range of motion of her left upper extremity. The patient also endorses mild swelling in her left upper extremity that is worsened from her reported baseline.. The patient has a PMH significant for history of breast cancer s/p bilateral mastectomy with associated lymphedema. The patient isnot chronically anticoagulated. Differential includes but is not limited to: DVT, overuse injury, cartilaginous injury, rotator cuff injury, strain, sprain, among others The patient is alert, oriented, afebrile, and all other vital signs are unremarkable upon presentation to the emergency department. Overall, the patient is well appearing and in no acute distress. Left upper extremity is neurovascularly intact. No significant appreciable edema of left upper extremit y. No axillary lymphadenopathy. No skin coloration changes. Left upper extremity ultrasound was ultimately negative for acute DVT. Symptoms improved with Toradol administered in the emergency department. I suspect that the patient's pain symptoms are musculoskeletal in etiology. Steroid burst and muscle relaxers were prescribed upon discharge. Ice, heat, Tylenol, ibuprofen, and OTC lidocaine patches were also advised for symptom management upon discharge. Work note provided. The patient was advised to follow up with primary care if symptoms do not improve with conservative treatment over the course of the next week. ED return precautions for new or worsening symptoms were discussed. The patient understood and agreed with the plan of care. The patient was discharged home from the emergencydepartment in good condition. SDOH: No concerns present ED Course as of 06/18/23 1606 Sat Jun 18, 2023 1228 US Upper Extremity Veins Left EXAM: US UPPER EXTREMITY VEINS LEFT Exam performed with color and spectral Doppler analysis. COMPARISON: None. FINDINGS: LEFT: Internal Jugular Vein: Negative. Innominate Vein: Negative. Subclavian Vein: Negative. Axillary Vein: Negative. Brachial Veins: Negative. Cephalic Vein: Negative. Basilic Vein: Negative. Information on venous thrombosis and management can be found on the [facility] site. Link [email or web address] IMPRESSION: Negative for acute DVT. Final Diagnoses: as of 06/18/23 1606 Pain In Left Upper Arm Sue Rangel P.A.-C., PKevin, M.S. 06/18/23 1614 AGENT documented in this encounter Plan of Treatment Upcoming Encounters Date Type Department Care Team (Latest Contact Info) Description 11/17/2023 9:45 AM CDT Clinical Communication Virtual Review in [address] [phone] 11/21/2023 9:40 AM CDT Office Visit Department of Oncology in [address] [phone] Edgar Salcedo, ERIBERTO, C.N.P., M.S.N. [address] [place] [phone] Scheduled Procedures Name Priority Associated Diagnoses Date/Ti me RECONSTRUCTION BREAST WITH D EEP INFERIOR EPIGASTRIC ENVIRONMENTAL SERVICES ATTENDANT FLAP Absence Of Breast Acquired Bilateral REMOVAL TISSUE HOUSE MOVER HELPER BREAST Absence Of Breast Acquired Bilateral documented as of this encounter Procedures Procedure Name Priority Date/Time Associated Diagnosis Comments US UPPER EXTREMITY VEINS LEFT RAD - Semiurgent (Fast; most ED patients; some inpatients) 06/18/2023 12:15 PM LIFE AGENT documented in this encounter Results * US Upper Extremity Veins Left (06/18/2023 12:15 PM LIFE AGENT) Anatomical Region Laterality Modality Upper Extremity, Ultrasound RST LOS, Ultrasound ARZ LOS, Ultrasound FLA LOS Left Ultrasound Impressions 06/18/2023 12:20 PM LIFE AGENT Negative for acute DVT. Narrative 06/18/2023 12:20 PM LIFE AGENT EXAM: US UPPER EXTREMITY VEINS LEFT Exam performed with color and spectral Doppler analysis. COMPARISON: None. FINDINGS: LEFT: Internal Jugular Vein: Negative. Innominate Vein: Negative. Subclavian Vein: Negative. Axillary Vein: Negative. Brachial Veins: Negative. Cephalic Vein: Negative. Basilic Vein: Negative. Information on venous thrombosis and management can be found on the [facility] site. Link [email or web address] Procedure Note Kenyon Mcgowan M.D. - 06/18/2023 EXAM: US UPPER EXTREMITY VEINS LEFT Exam performed with color and spectral Doppler analysis. COMPARISON: None. FINDINGS: LEFT: Internal Jugular Vein: Negative. Innominate Vein: Negative. Subclavian Vein: Negative. Axillary Vein: Negative. Brachial Veins: Negative. Cephalic Vein: Negative. Basilic Vein: Negative. Information on venous thrombosis and management can be found on [facility] site. [email or web address] IMPRESSION: Negative for acute DVT. Sue Rangel P.A.-C., P.A., M.S. IM [facility] PROCEDURES documented in this encounter Visit Diagnoses Diagnosis Pain In Left Upper Arm- Primary documented in this encounter Administered Medications Inactive Administered Medications - up to 3 most recent administrations Medication Order MAR Action Action Date Dose Rate Site ketorolac injection 15 mg (TORADOL) 15 mg, intramuscular, Once, On 06/18/23 at 1125, For 1 dose, Adult IV push rate: Over 15 seconds. Peds IV push rate: Over 1 minute. Doses > 15 mg IV/IM are discouraged due to lack of additional analgesic benefit. Given 06/18/2023 11:28 AM LIFE AGENT 15 mg Right Deltoid documented in this encounter Active and Recently Administered Medications Times are shown in LIFE AGENT. Scheduled Medication Order 06/16/2023 06/17/2023 06/18/2023 ketorolac injection 15 mg (TORADOL) (COMPLETED) 15 mg, intramuscular, Once, On 06/18/23 at 1125, For 1 dose, Adult IV push rate: Over 15 seconds. Peds IV push rate: Over 1 minute. Doses > 15 mg IV/IM are discouraged due to lack of additional analgesic benefit. 1128 (Given - Provid er: Becky Arana R.N.) documented in this encounter Care Teams Sales And Leasing Consultant Relationship Specialty Start Date End Date Elsewhere, Pcp PCP - General Internal Medicine 06/18/23 documented as of this encounter
--- OUTSIDE RECORDS SUMMARY | 2023-09-20 06:56 | XMS_ITS ---
Author Name Unknown Organization [facility] Address [address] [place] [address] Care Team Providers Care Aba Tutor Name Role Phone Elsewhere, Pcp Primary Care Provider Unavailabl e Active Problems Problem Noted Date Diagnosed Date Obesity Body Mass Index 30-39.9 Adult 05/05/2021 Absence Of Breast Acquired Bilateral 02/03/2021 Overview: Added automatically from request for surgery [id number] Malignant Neoplasm Of Breast Female Right 2020 Cancer Staging:Pathologic stage from 11/19/2020:Stage IA(pT1c, pN0, cM0, G1, ER+, LA+, HER2-) - Signed by Edgar Salcedo APRN, C.N.P., M.S.N. on 10/15/2022 Overview: Added automatically from request for surgery [id number] [facility] Current Oncology Plans No current plan information found. Past Plans Hem/Onc Therapy Plan 1 Plan Name Start Date Discontinue Date Treatment Medications Discontinue Reason Plan Provider GOSERELIN ACETATE EVERY 4 WEEKS - FOR OVARIAN SUPPRESSION 03/16/2021 07/13/2022 goserelin (ZOLADEX) Patient Preference Edgar Salcedo APRN, C.N.P., M.S.N. Radiation Treatments * No radiation treatments are documented for this patient in [facility]. Treatments may have been administered in another system. Treatment Summaries Malignant Neoplasm Of Breast Female Right (HCC)* Images from the original note were not included. Your Survivorship Care Plan Provided on 03/04/21 General Information Patient name Marta Bhatia (home) Date of 1970 Introduction This is your personal survivorship care plan. It is both a summary of your treatment history as well as a follow-up plan to guide you through the management of your continued medical care. The plan was developed by a multidisciplinary team of [place] cancer providers to help you understand, discuss, and plan post-treatment needs with your healthcare providers, including your primary care team. It includes detailed medical information regarding your treatment as well as information relating to potential shorter and long-term side-effects post-treatment. What is Survivorship? The most widely used definition of survivorship care involves the following elements: 1. Prevention of recurrent and new cancers, and of other late effects; 2. Surveillance for cancer spread, recurrence, or second cancers; assessment of medical and psychosocial late effects; 3. Intervention for consequences of cancer and its treatment, for example: medical problems such aslymphedema and sexual dysfunction; symptoms, including pain and fatigue; psychological distress experienced by cancer survivors and their caregivers; and concerns related to employment, insurance, and disability; and 4. Coordination between specialists and primary care providers to ensure that all of the survivors health needs are met. Care Team Tyron Fletcher M.D. as Oncologist Breast (Medical Oncology) Debra Adamson MD, Breast Clinic Physician Mary Chacon DO, Breast Surgeon Laura Fernando MBBS, Plastic Surgeon Blanca Hughes APRN, [employer], Survivorship Clinic Provider Cancer Diagnosis and Staging Information Diagnosis Malignant Neoplasm Of Breast Adenocarcinoma Right (HCC) Diagnosis date 10/20/2020 Staging information Cancer Staging Pathologic Stage Classification (AJCC, 8th edition) TNM Descriptors: m (combined with findings on prior surgeries) Primary Tumor: pT1b Regional Lymph Node Modifier: sn Regional Lymph Nodes: pN0 Distant Metastasis: Not applicable Background Information Family history Cancer-related family history includes Breast cancer (age of onset: 40) in her maternal grandmother; Breast cancer (age of onset: 79) in her father's sister; Lung cancer (age of onset:69) in her mother; Ovarian cancer in her maternal grandmother. Treatment Summary Breast Cancer Oncology History Oncology History Malignant Neoplasm Of Breast Adenocarcinoma Right (HCC) 10/20/2020 Initial Diagnosis From breast clinic notes: Marta Bhatia is a 50 y.o. female presenting in the company of her for advice regarding further evaluation and management of recently diagnosed right breast cancer identified at the time of surgical excision of an area of PASH. I have reviewed her outside records and discussed with her. Heroutside imaging and pathology have been reviewed here. She reports that a couple of years ago she noticed a lump in her outer right breast. It seemed to get a little bit larger. Last spring she underwent breast imaging and there was nothing abnormal in this area but a large retroareolar mass was identified. She underwent core needle biopsy which demonstrated PASH in she was reassured. At that time it was planned that she would go ahead with surgical excision but this was delayed due to the pandemic. She had not really noticed a significant exchange operator time. Prior to the planned excision she had updated breast imaging. Based on [facility] review, her August 2019 imaging demonstrated a 5.4 x 2.8 x 3.5 cm subareolar mass that was predominantly solid with cystic components and flow on Doppler. Biopsy images were also reviewed here and demonstrated appropriate needle placement in the retroareolar breast mass with a 2 or all clip placed at thetime of biopsy. Updated imaging in June of this year demonstrated that the biopsied mass with the clip in the retroareolar right breast appears larger mammographically and sonographically at increased measuring 6.1 x 2.7 by at least 6.5 cm with the biopsy clip visible in the superficial aspect.Updated imaging of the upper outer right breast now noted at 12 cm from the nipple (previously noted to be 8 cm from the nipple) was negative. It is noted by the radiologist here that the needle biopsy demonstrating PASH in 2019 may very well be concordant with the imaging from that time. In this setting she pursued surgical excision of the mass that was presumed to represent PASH. 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 On discussion with her surgeon they consider the options and she and her surgeon agreed on mastectomy. She was referred to Dr. Ce Markham as she is interested in reconstruction. In considering implant based reconstruction versus tissue flap, Ms. Bhatia is most interested in tissue flap based reconstruction so Dr. Markham recommended that she come to [place] for surgical treatment. On review she does not have any symptoms of concern in the setting of her incidentally identified breast cancer. She has active and healthy and has no symptoms that are concerning for angina, heart failure, or pulmonary disease. She has no history of blood clots or bleeding issues. On review of her pathology here, the original core needle biopsy from 2019 demonstrates PASH. The surgical specimens were noted to be retroareolar mass (index lesion ) and a tissue specimen posteriorto the index lesion. The retroareolar mass demonstrates grade 1 invasive ductal carcinoma, stronglyER/LA positive, HER2 negative by FISH with associated high-grade DCIS with the adjacent breast parenchyma demonstrating PASH and previous biopsy site changes. It is noted on our interpretation that the DCIS is less than 1 mm from the superior and medial margin and the margin for the invasive component is 3 mm medially. There is no size provided for the invasive component; the outside pathology report demonstrates that the invasive component measured 2 mm. The specimen posterior to the dominant mass also demonstrated invasive ductal carcinoma, 1 cm in size, and high-grade DCIS. The invasive carcinoma and the DCIS are less than 1 mm from the closest margins, the interior margin in the case ofinvasive disease and the posterior margin in the case of the DCIS. After this incidental diagnosis, sheunderwent MRI for further evaluation. Our interpretation is somewhat limited by some technical issues with the outside study. Able to be identified are postoperative findings with multiloculated seromas in the inferior breast and edema and skin thickening. There is subtle non mass enhancement in the inferior breast most consistent with postoperative findings and this appears more focal in the central breast at posterior depth. There were noted to be scatteredsignal voids in this area likely representing surgical clips. There is a normal intramammary lymph node in the upper outer quadrant of the right breast and scattered enhancing foci in cysts. The left breast is negative on MRI. There was no evidence of adenopathy. It was suggested that if it would be helpful for clinical decision-making and treatment planning, a repeat MRI to evaluate for potential residual disease could be done. 11/19/2020 Surgery and Procedures Bilateral mastectomy. Left breast is benign. Right breast reveals invasive ductal carcinoma, grade 1 with negative margins achieved with mass measuring 0.7 x 0.7 x 0.5 cm. . One sentinel lymph node negative. ER/LA 91-100%, HER2 1+, Ki- 67 2%. Final stage:pT1c N0 (Initial excision plus mastectomy specimen) 12/01/2020 Other Medical Oncology Consult: Given the fact that the patient has undergone bilateral mastectomy, she is at very low risk for local recurrence. She does remain at risk for distant recurrence given that the tumor size approached 2cm, and I have recommended adjuvant tamoxifen. I do not believe that there is a role for obtaining Oncotype DX recurrence score given the grade 1 aspect as well as the low Ki-67. We also discussed the role of CYP2D6 testing. There are multiple data sets demonstrating the importance of CYP2D6 testing in patients receiving tamoxifen monotherapy (but not in patients receiving tamoxifen followed by an AI or chemotherapy followed by tamoxifen). Given the fact that the patient isbeing treated with tamoxifen monotherapy and additionally because she is premenopausal, there is greater rationale for testing; and, therefore, I recommended CYP2D6 testing. We discussed the implications of testing. If the patient was a poor metabolizer, there would be theoption of adding ovarian function suppression in addition, as well as potentially doubling the doseof tamoxifen. 12/01/2020 - Biological/Targeted/Hormone Therapy Tamoxifen started Schedule of Surveillance Testing and Visits The basis for the surveillance testing schedule and test recommendations in this section are largely based on guidelines from the [place] [employer] (ASCO), the biggest cancer society regarding clinical practice. -Physical examinations should be performed every 3 to 6 months for the first 3 years, every 6 to 12months for years 4 and 5, and annually thereafter. Surveillance visits How often: Every 6 months With Who: Medical Oncology and Breast Clinic Additional information: Imaging (mammograms) How often: Not needed Where: Additional information: Follow-up care with your Primary Care Physician (PCP) Follow-up care with your primary care physician is recommended for age- appropriate cancer screenings, for monitoring blood pressure, cholesterol, blood sugar, weight, and for other medical conditions. Long- term Side effects Possible late and long-term effects of cancer treatment can include bone thinning, menopausal symptoms, and nerve damage. Please talk to your care team about ways to manage these side effects. Side Effects from Endocrine Therapy Endocrine therapy uses medication that travels through your body to either reduce the amount of hormones that reach hormone-sensitive cancer cells or block the action of estrogen so cancer cells stopgrowing and . Women whose tumors are hormone receptor positive generally have a lower rate of cancer returning inthat location and have a longer overall survival rate. Hormonal therapy appears to lessen the chance of recurrence and improve survival rates. Tamoxifen (Nolvadex???) blocks a tumor???s ability to use hormones. It typically is taken daily in pill form for five years after cancer surgery. Tamoxifen is available for women who are premenopausal or postmenopausal. Common side effects of tamoxifen include: -Hot flashes or night sweats. -Nausea. -Irregular periods in women prior to menopause. -Vaginal discharge. -Vaginal itching, dryness or irritation. Less frequent symptoms include depression, loss of appetite, eye problems such as cataracts, headache, and weight gain. There also can be an increased risk of blood clots, strokes and uterine cancerssuch as endometrial cancer. Another group of hormonal medications called aromatase inhibitors are available for post-menopausalwomen who have hormone receptor positive breast cancer. Rather than blocking a tumor???s ability touse estrogen, aromatase inhibitors prevent tumor growth by reducing the amount of estrogen the bodyproduces. The three aromatase inhibitors currently approved for use in breast cancer treatment are anastrozole (Arimidex???), exemestane (Aromasin???) and letrozole (Femara???). Aromatase inhibitors come in pill form and typically are taken daily for five years. They appear to be as effective as tamoxifen, with fewer side effects and less risk of blood clots and uterine cancer. However, aromatase inhibitors are associated with a small increased risk for osteoporosis. Common side effects of aromatase inhibitors include: -Joint/ muscle pain -Muscle pain. -Hot flashes. -Vaginal dryness. -Fatigue Symptoms of Recurrence In addition, please contact your healthcare provider with any new symptoms that may signify a breast cancer recurrence including lumps or skin changes on your breast or chest wall, pain that lasts more than a few weeks, difficulty breathing, or unintentional weight loss. Understand the Emotional Impact After cancer treatment, you may feel your life has changed in some ways that are hard to explain. It may seem hard to get back to ???normal.?? It is common for people who have had cancer to feel many emotions, including anxiety, depression, anger, grief or guilt. These are reasonable responses to a big health change. To help handle these emotions, you may need to decide what ???normal?? means to you after all the changes you have gone through. Doing this may help you find a new way to live that brings you more alyson and meaning. If you feel emotionally overwhelmed after your cancer treatment, tell your health care provider. She or he may be able to connect you with a support group or other support services. Your health care provider may also offer you treatment choices for specific concerns or refer to you a mental health p jordan. * Anxiety Anxiety is a common emotion among people who have had cancer. Fear of cancer coming back often causes anxiety. Because of this, follow-up testing can be stressful. Other common sources of anxiety include job issues, concerns about money or relationships, and worries about the physical effect of cancer treatment. What you can do -Talk about your worries with someone you trust. -Try stress management tools, such as meditation, prayer and regular exercise. -Learn the signs that may tell you your cancer has returned. Learn what you can do to lower your cancer risk. -Focus on the healthy choices you can make in areas of your life that you can control. If anxiety makes your daily life difficult, see your health care provider. * Depression After cancer treatment, you may have many different feelings as you think about what you have been through. Some of these feelings may not be positive. That is normal. However, negative feelings thatstay with you for more than two weeks or get in the way of your daily life can be signs of depression. If this happens to you, talk to your health care provider. Symptoms of depression include: -Sadness -Hopelessness -Loss of interest in activities -Irritability -Difficulty Sleeping -Change in appetite -Difficulty concentrating -Problems thinking clearly Fatigue Some cancer survivors report that they still feel tired or worn out. In fact, fatigue is one of themost common complaints during the first year of recovery. Rest or sleep does not cure the type of fatigue that you may have. Doctors do not know its exact causes. The causes of fatigue are different for people who are receiving treatment than they are for those who have finished. Fatigue during treatment can be caused by cancer therapy. Other problems can also play a part in fatigue, like anemia (having too few red blood cells) or having a weak immune system. Poor nutrition, not drinking enoughliquids, and depression can also be causes. Pain can make fatigue worse. Researchers are still learning about what may cause fatigue after treatment. How long will fatigue last? There is no normal pattern. For some, fatigue gets better over time. Some people may still feel energy loss years later. Some people feel very frustrated when fatigue lasts longer than they think it should and when it gets in the way of their normal routine. They may also worry that their friends, family, and coworkers will get upset with them if they continue to show signs of fatigue. Getting Help Talk with your doctor or nurse about what may be causing your fatigue and what can be done about it. Ask about: -How many medicines you are taking or other medical problems you have might affect your energy level -How you can control your pain, if pain is a problem for you -Exercise programs that might help, such as walking -Relaxation exercises -Changing your diet or drinking more fluids -Medicines or nutritional supplements that can help -Specialists who might help you, such as physical therapists, occupational therapists, applicator sprayer, or mental health care providers Coping With Fatigue Here are some ideas: -Plan your day. Be active at the time of day when you feel most alert and energetic. -Save your energy by changing how you do things. For example, sit on a stool while you cook or washdishes. -Take short naps or rest breaks between activities. -Try to go to sleep and wake up at the same time every day. -Do what you enjoy, but do less of it. Focus on old or new interests that don???t tire you out. Forexample, try to read something brief or listen to music. -Let others help you. They might cook a meal, run errands, or do the laundry. If no one offers, askfor what you need. Friends and family might be willing to help but may not know what to do. -Choose how to spend your energy. Try to let go of things that don???t matter as much now. -Think about joining a support group. Talking about your fatigue with others who have had the same problem may help you find new ways to cope. Sexual Changes Sexuality is part of being human. Love, affection and intimacy all play a role in healthy relationships. Cancer and its treatments may change the way you view your body and your ability to be intimate with your partner. What you can do: -After treatment, ask your health care provider about sexual changes you can expect. -Be open and communicate with your partner about your feelings, concern and needs. You may need to find new ways to be intimate and to express your love. -Talk with your health care provider about any concerns you may have. You also may find it helpful to speak with a provider who specializes in sexuality. Spiritual issues A cancer diagnosis may change your spirituality. You may find it to be stronger and deeper and fromthe challenges you have overcome, or you may feel abandoned and struggle with the question Why me? What you can do - Take time to think about your spirituality. Try to find a sense of peace within your own spiritual framework. -Talk with your spiritual or activities leader to help guide you through some of the questions raised by your illness. -Consider using the [employer] staff at [facility] to help you with your spiritual questions. t: Back to Work Going back to work can be a challenging transition after cancer treatment. If you have questions about employment, ask your health care provider to refer you to a [facility] social services director. He or shecan give you workplace information. Americans with Disabilities Act If you believe that your physical function is temporarily or permanently affected by cancer or its treatment, you should know about the Americans with Disabilities Act, or ADA. ADA bans discrimination against qualified employees with disabilities who can perform the essential functions of their job, with or without reasonable accommodations. Cancer survivors who return to work are due any reasonable change or adjustment in their work environment that allows a person with a disability to have equal opportunities. A social services director can help you look at your situation and the Americans with Disabilities Act Genetic testing and employment Sometimes cancer diagnosis and treatment involves genetic testing. This information becomes a part of your medical record. It is against the law for an employer to discriminate against a job applicant or a current or former employee because of genetic information. Wellness Recommendations: Healthy food choices include a wide variety of fruits, vegetables, whole grains, poultry, and fish while minimizing refined grains, processed and red meats, desserts, and high?fat dairy products. Exercise after cancer treatment improves quality of life, fatigue, mood, muscle strength, and physical functioning. It also decreases the risk of cancer recurrence and the risk of cardiovascular disease. Work up to exercising 30 minutes/day at least 5 days/week, and strive to achieve a healthy weight (BMI 18.5?25). Alcohol use is linked to the risk of breast cancer recurrence. If you choose to drink alcohol, do so in moderation (no more than 7 drinks/week on average). Tobacco use may also increase risk of breast cancer recurrence. If you smoke, talk to your doctor to help you quit. The [facility] can help. Stress management tools such as meditation, prayer, and breathing exercises may be helpful. If you develop feelings of worry, anxiety, sadness, or hopelessness that persist for > 2 weeks, talk to a health care provider. Sleep is important for healing and well-being. Most adults require 7?9 hours of sleep/night. If youare having difficulty sleeping, talk to your provider .
--- OUTSIDE RECORDS SUMMARY | 2023-09-20 06:56 | XMS_ITS | Clinical Summary ---
Author Name Unknown Organization [facility] Address [address] [place] [address] Care Team Providers Care Coffee Supervisor Name Role Phone Elsewhere, Pcp Primary Care Provider Unavailabl e Source Comments Patient records contain information from all sites at [facility]. For routine questions regarding patient records, call [phone] during business hours, M-F 8:00 AM - 5:00 PM Central Time. Record requests for emergency care only can be directed to [phone] at any time.[facility] Allergies No known active allergies Medications Medication Sig Dispensed Refills Start Date End Date Status cholecalciferol (VITAMIN D3) 50 mcg (2,000 Unit) capsule Take 2,000 Units by mouth daily. 06/16/2020 Active B complex-vitamin (SUPER B-50) capsule Take 1 capsule by mouth daily. 07/28/2020 Active omega 1-ynl-fsb-fish oil 1,000 mg (120 mg-180 mg) capsule [...] Overview: Added automatically from request for surgery [id number] Malignant Neoplasm Of Breast Female Right 2020 Cancer Staging:Pathologic stage from 11/19/2020:Stage IA(pT1c, pN0, cM0, G1, ER+, MS+, HER2-) - Signed by Edgar Salcedo APRN, C.N.P., M.S.N. on 10/15/2022 Overview: Added automatically from request for surgery [id number] Murmur Heart Immunizations Name Administration Dates Next Due Influenza (IM) Preservative Free 021(Deferred: Other - will get locally),04/17/2009 RZV (SHINGRIX) 03/04/2021(Deferred: Other - will get locally) SARS-COV-2 (COVID-19) - PFIZ ER (Discontinued)(12 years or older) 03/04/2021(Deferred: Other - plans to get soon) Tdap 06/10/2020,10/30/2009 Family History Medical History Relation Name Comments Diabetes Father Delfino Jones Hypertension Father Delfino Jones Breast cancer Father's Sister Rosalva [place] Breast cancer Maternal Grandmother [place] Ovarian cancer Maternal Grandmother [place] Lung cancer Mother Andreea Jones Relation Name Status Comments Father Delfino Jones Father's Sister Rosalva [place] Maternal Grandmother [place] Mother Andreea Jones Social History Tobacco Use Types Packs/Day Years [...] week 11/23/2021 How often do you attend orthodoxy or judaism serv ices? Patient declined 11/23/2021 Do you belong to any clubs o r organizations such as orthodoxy groups, unions, [email or web address] or athletic groups, or school groups? No [...] care, and heating? Not very hard 11/23/2021 [facility] [place] of Occupat ional Health - Occupational Stress [...] place to sleep or slept in a mcc (including now)? No 11/23/2021 Nutrition Answer Date [...] Comments Blood Pressure 149/78 06/18/2023 11:15 AM GROUNDS MANAGER Pulse 94 06/18/2023 11:15 AM GROUNDS MANAGER Temperature 36.2 ??C (97.2 ??F) 06/18/2023 11:[address] Respiratory Rate 20 06/18/2023 11:15 AM GROUNDS MANAGER Oxygen Saturation 98% 06/18/2023 11:15 AM GROUNDS MANAGER Inhaled Oxygen Concentration - - Weight 91 kg (200 lb 9.9 oz) 06/18/2023 11:14 AM GROUNDS MANAGER Height 169.7 cm (5' 6.81) 05/12/2023 2:17 PM CS T Body Mass Index 31.6 05/12/2023 2:17 PM GROUNDS MANAGER Plan of Treatment Upcoming Encounters Date Type Department Care Team (Latest Contact Info) Description 11/17/2023 9:45 AM CDT Clinical Communication Virtual Review in [place], [place] [address] [place] [address] 11/21/2023 9:40 AM CDT Office Visit Department of Oncology in [place], [place] [address] [place] [phone] Edgar Salcedo, ERIBERTO, C.N.P., M.S.N. [address] [place] [phone] Scheduled Procedures Name Priority Associated Diagnoses Date/Ti me RECONSTRUCTION BREAST WITH D EEP INFERIOR EPIGASTRIC COBOL MAINFRAME DEVELOPER FLAP Absence Of Breast Acquired Bilateral REMOVAL TISSUE FRUIT LOADER MACHINE OPERATOR BREAST Absence Of Breast Acquired Bilateral Health Maintenance Due Date Last Done Comments CT Colonography 1971 Cervical Cancer Screening 1971 Cologuard 1971 Colonoscopy 1971 Colorectal Cancer Screening 1971 FIT 1971 Pneumococcal vaccine (0-64 years) (1 of 2 - PCV) 1977 Hepatitis B Vaccines (1 of 3 - 19+ 3-dose series) 1990 Zoster Vaccines (2 of 2) 04/29/2021 03/04/2021 COVID-19 Vaccine (3 - Pfizer risk series) 07/15/2021 06/17/2021, 05/13/2021 Influenza Vaccine (#1) 2023 03/04/2021, 2008 Depression Screening (Annual PHQ-2) 05/09/2023 Fasting Glucose for Diabetes Screening 07/22/2024 07/22/2021, 06/10/2020 Lipid (Cholesterol) Screening 07/22/2026 07/22/2021 DTaP,Tdap,and Td Vaccines (3 - Td or Tdap) 06/10/2030 06/10/2020, 10/30/2009 Mammogram Discontinued 07/15/2020, 06/09, 08/14/2019, Additional history exists HIV Screening Completed 11/19/2020, 11/19/2020 Hepatitis C Screening Completed 11/19/2020 HPV Vaccines Aged Out No longer eligi johanny based on patient's age to complete this topic Medical Devices Implanted Type Area Mechanical Maintenance Supervisor Device Identifier Shelf Expiration Date Model / Serial / Lot Memorygel Smooth Round High Profile 800 Cc Silicone Breast Implant Implanted:Qt y: 1 on 11/27/2021 at [facility] Breast Implant Right: Breast [employer] [id number] 08/18/2026 [id number] / [id number] / [id number] Memorygel Smooth Round High Profile 800 Cc Silicone Breast Implant Implanted:Qt y: 1 on 11/27/2021 at [facility] Breast Implant Left: Breast [employer] [id number] 08/18/2026 350-8004 BC / [id number] / [id number] Clp Hrzn Ti 6 Clp Sm Red - [id number] Implanted:Qt y: 1 on 11/19/2020 by Mary Chacon D.Dionna. at [facility] Hardware e.g. pins/screws /rods [employer] [id number] / / Clp Hrzn Ti 6 Clp Sm Red - [id number] Implanted:Qt y: 1 on 11/19/2020 by Mary Chacon D.Dionna. at [facility] Hardware e.g. pins/screws /rods [employer] [id number] / / Clp Hrzn Ti 6 Clp Sm Red - [id number] Implanted:Qt y: 1 on 11/19/2020 by Mary Chacon D.Dionna. at [facility] Hardware e.g. pins/screws /rods [employer] [id number] / / Clp Hrzn Ti 6 Clp Sm Red - [id number] Implanted:Qt y: 1 on 11/19/2020 by Mary Chacon D.Dionna. at [facility] Hardware e.g. pins/screws /rods [employer] [id number] / / Imaging Marker Imaging Marker Right: Breast Galaflex 3dr Scaffold Implanted:Qt y: 1 on 11/27/2021 at [facility] Mesh or Patch Bilateral : Breast Tepha [id number] 05/16/2025 [id number] / / [id number] Explanted Type Area Mechanical Maintenance Supervisor Device Identifier Shelf Expiration Date Model / Serial / Lot Exp Brst Ntr Tamara Mxt Rnd 700cc - [id number] - [id number] Implanted:Qty : 1 on 11/19/2020 by Laura Fernando M.B.B.S. at [facility] Explanted:Qty : 1 on 11/27/2021 at [facility] Breast Implant Left: Breast [employer] 01/01/2024 133S-MX-1 5-T / [id number] / Exp Brst Ntr Tamara Mxt Rnd 700cc - [id number] - [id number] Implanted:Qty : 1 on 11/19/2020 by Laura Fernando M.B.B.S. at [facility] Explanted:Qty : 1 on 11/27/2021 at [facility] Breast Implant Right: Breast [employer] 09/20/2024 133S-MX-1 5-T / [id number] / Procedures Procedure Name Priority Date/Time Associated Diagnosis Comments EXTI GLUCOSE, RANDOM, S/P Routine 07/22/2021 9:05 AM CDT EXTI LIPID PANEL W REFLEX MEASURED LDL Routine 07/22/2021 9:05 AM CDT BBF SOURCE PROFILE RAPID Routine 11/19/2020 2:14 PM CDT OUTSIDE MG MAMMOGRAM Routine 07/15/2020 8:20 AM GROUNDS MANAGER from Last 3 Months or Most Recently Relevant to Health Maintenance Results * BBF Source Profile Rapid (11/19/2020 2:14 PM CDT) HCV Ab Screen Patient Source, S Negative Negative 11/19/2020 9:47 PM CDT [facility] Comment:Cywjpi-bd-djwdhk rat io is <1.00. HBs Antigen Patient Source, S Negative Negative 11/19/2020 9:29 PM CDT [facility] HIV-1/-2 Ag and Ab PS, P Negative Negative 11/19/2020 8:59 PM CDT [facility] Comment: Negative result does not rule out HIV infection. If exposure to HIV infection occurred <14 days ago, contact the laboratory to request addition of HIV-1 RNA detection / quantification test (HIVQN). Blood (Blood, Venous) 11/19/2020 2:14 PM CDT 11/19/2020 6:19 PM CDT Narrative [facility] - 11/19/2020 9:47 PM CDT Specimen Information: Specimen ID: [id number] Specimen Type: Blood Specimen Collection Start Date: 11/19/2020 ??2:14 PM Specimen Received Date: 11/19/2020 ??6:19 PM Specimen ID: [id number] Specimen Type: Blood Specimen Collection Start Date: 11/19/2020 ??2:14 PM Specimen Received Date: 11/19/2020 ??6:23 PM Mary Chacon D.O. LAB MICROBIOLOGY - B LOOD ORDERABLES [facility] [address] [place] [address] [facility] Dept. of Laboratory Medicine and Pathology [address] [place] [address] * BREAST SURGICAL SPECIMEN-Outside Mammogram (07/15/2020 8:20 AM GROUNDS MANAGER) Narrative [facility] - 09/02/2020 7:34 PM CDT [...] Advance Directives For more information, please contact: [phone] * Full Code (Latest Code Status on File) Date Activated Date Inactivated Comments 11/19/2020 6:37 AM 11/19/2020 9:25 PM Question Answer Comments Full Code: Not Discussed Due to: Not medically appropriate Care Teams Coffee Supervisor Relationship Specialty Start Date End Date Elsewhere, Pcp PCP - General Internal Medicine 06/18/23
--- OUTSIDE RECORDS SUMMARY | 2023-09-20 06:56 | XMS_ITS | Clinical Summary ---
Author Name Unknown Organization [facility] Address [place], [place] [address] Care Team Providers Care Sample Card Maker Name Role Phone Any Anne MD Primary Care Provider Allergies No known active allergies Medications Medication Sig Dispensed Refills Start Date End Date Status polyethylene glycol-electrolyte (GOLYTELY) 236-22.74-6.74 -5.86 gram suspensionIndicati ons:Encounter for screening colonoscopy Drink 2 liters (half the bottle) the day before colonoscopy and 2 liters (remaining prep) 6 hours prior to colonoscopy appointment. 4000 mL 12/28/2022 Active tamoxifen (NOLVADEX) 20 mg tablet Take 40 mg by mouth once daily. 04/25/2023 Active oxybutynin XL (DITROPAN XL) 5 mg CR tabletIndications: Urge incontinence Take 1 Tablet (5 mg) by mouth once daily. 0 07/22/2021 4 Discontinue d(*Med complete/Re gimen complete/[place] of care change) gabapentin (NEURONTIN) 100 mg capsuleIndications :Hot flashes due to menopause TAKE 1 CAPSULE(100 MG) BY MOUTH AT BEDTIME 90 Capsule 10/29/2021 4 Discontinue d(*Med complete/Re gimen complete/[place] of care change) Active Problems Problem Noted Date Diagnosed Date Malignant neoplasm of female breast, unspecified estrogen receptor status, unspecified laterality, unspecified site of breast 07/22/2021 Varicose veins of lower extr emities with other complications 10/24/2008 Encounters Date Type Department Care Team Description 09/15/2023 8:45 AM CDT Office Visit [facility] [address] [place] [address] Any Anne MD Pre-Op Exam (09/20/2023, [facility], Women's Health provider) 09/15/2023 Travel 09/05/2023 Lab Requisition [facility] [phone] Radha Bills MD 09/05/2023 Lab Requisition [facility] [phone] Radha Bills MD 09/01/2023 Orders Only [facility] Scanner 1 scan: (1-Ord) [facility], PELVIS TV, 09/01/2023 09/01/2023 Nurse Triage [facility] [address] [place] [address] Any Anne MD Postmenopausal; Vaginal Bleeding 08/31/2023 Telephone [facility] [address] [place] [address] Juan Carlos Jensen MD Screening from Last 3 Months Immunizations Name Administration Dates Next Due Influenza, IIV3 (Age >=3 years) 04/17/2009 Tdap 06/10/2020,10/30/2009 Family History Medical History Relation Name Comments Diabetes Father diet controlled Cancer Maternal Grandmother ovary Cancer-breast Maternal Grandmother f rom cervical cancer Lung cancer Mother Genetic Other cancer~cataract s-Grandma, brother~glaucoma-Grandma Relation Name Status Comments Father Alive Maternal Grandmother Mother Alive Other Social History Tobacco Use Types Packs/Day Years Used Date Smoking Tobacco: Never Smokeless Tobacco: Never Tobacco Cessation:Counseling Given: Yes Alcohol Use Standard Drinks/Week Comments Yes 0 (1 standard drink = 0.6 oz pur e alcohol) twice monthly PHQ-2 Answer Date Recorded PHQ-2 TOTAL SCORE 1 07/22/2021 Social Connections Answer Date Recorded Frequency of Communication with Friends and Fami ly 0 09/15/2023 Financial Resource Strain Answer Date R ecorded Difficulty of Paying Living Expenses 3 09/15/2023 Difficulty of Paying Living Expenses Not on file 09/15/2023 Food Insecurity Answer Date Recorded Worried About Running Out of Food in the Last Ye ar 1 09/15/2023 Transportation Needs Answer Date Record ed Lack of Transportation (Medical) 1 09/15/2023 Housing Stability Answer Date Recorded Unable to Pay for Housing in the Last Year 1 09/15/2023 Sex and Gender Information Value Date Recorded Sex Assigned at Female 09/15/2020 11:22 PM CDT Gender Identity Female 09/15/2020 11:22 PM CDT Sexual Orientation Straight 09/15/2020 11 :22 PM CDT Obstetrics History Para Term AB IAB SAB Ectopic Multiple Livin g Live Births 3 3 2 1 3 3 Date Outcome GA Total Labor Labor/2nd/3rd Weight Sex Delivery Anes PTL Janice A1 A5 Name Cl in 1998 36w 0d F Vag Ailyn ng 2000 Term F Vag Ailyn ng 2004 Term F Vag Ailyn ng Comments PTL with G1 No other complications with pregnancies/deliveries Last Filed Vital Signs Vital Sign Reading Time Taken Comments Blood Pressure 118/78 09/15/2023 8:58 AM CDT Pulse 79 09/15/2023 8:58 AM CDT Temperature 36.7 ??C (98.1 ??F) 09/15/2023 8:58 AM CD T Respiratory Rate 12 05/25/2005 12:00 AM TRANSFORMER SHOP SUPERVISOR Oxygen Saturation 97% 09/15/2023 8:58 AM CDT Inhaled Oxygen Concentration - - Weight 96.3 kg (212 lb 6.4 oz) 09/15/2023 8:58 A M CDT Height 168.9 cm (5' 6.5) 09/15/2023 8:58 AM CDT Body Mass Index 33.77 09/15/2023 8:58 AM CDT Plan of Treatment Upcoming Encounters Date Type Department Care Team (Late st Contact Info) Description 09/27/2023 9:30 AM CDT Office Visit [facility] [address] [place] [address] Juan Carlos Jensen MD [address] [place] [address] Health Maintenance Due Date Last Done Comments Pneumococcal series for age 6-64 (1 of 2 - PCV) 1977 HIV for age 15-65 1986 Hepatitis C screening for ag e 18-79 1989 Zoster (shingles) series for age 50+ (1 of 2) 1990 Colonoscopy through age 75 02/14/2016 COVID-19 vaccine series (3 - Pfizer risk series) 07/15/2021 06/17/2021, 05/13/2021 Depression screening for age 12+ 07/22/2022 07/22/2021, 06/11/2020, 06/10/2020, Additional history exists Influenza for age 50-64 01/08/2024 04/17/2009 BMI (ht and wt on same day) for age 18+ 09/14/2024 09/15/2023, 07/22/2021, 07/28/2020, Additional history exists Lipids for age 45-75 07/22/2026 07/22/2021, 07/12/2017, 01/08/2014, Additional history exists Pap test for age 21-65 09/01/2028 , 09/02/2023, 07/12/2017, Additional history exists Tetanus booster 06/10/2030 06/10/2020, 10/30/2009 Tdap Completed 06/10/2020, 10/30/2009 Mammogram for age 45-75 Discontinued 07/16/19 21, 06/18/2020, 08/09/2019, Additional history exists Procedures Procedure Name Priority Date/Time Associated Diagnosis Comments SCAN CORRESP-LABORATORY RESULTS 09/15/2023 10:48 AM CDT LAB TRACKING EVENT Routine 09/02/2023 2: 40 PM CDT LAB TRACKING EVENT Routine 09/02/2023 2: 40 PM CDT PATH TISSUE EXAM Routine 09/02/2023 2:40 PM CDT BUCKRAM SEWER THIN PREP PAP SCREEN IMAGED Routine 09/02/2023 2:40 PM CDT HPV THIN PREP Routine 09/02/2023 2:40 PM CDT SCAN-ULTRASOUND REPORT 09/01/2023 12:00 AM CDT LIPID PANEL W REFLEX MEASURED LDL Routine 07/22/2021 9:05 AM CDT Lipid screening SCAN-MAMMOGRAPHY REPORT 07/15/2020 12:00 AM TRANSFORMER SHOP SUPERVISOR from Last 3 Months or Most Recently Relevant to Health Maintenance Results * SCAN CORRESP-LABORATORY RESULTS (09/15/2023 10:48 AM CDT) Narrative 09/15/2023 10:48 AM CDT Ordered by an unspecified provider. Other Clinical Staff OTHER * LAB TRACKING EVENT (09/02/2023 2:40 PM CDT) Only the most recent of2 resultswithin the time period is included. Other (Other) Client Collect / Unknown 09/02/2023 2:40 PM CDT 09/05/2023 4:42 PM CDT Radha Bills MD LAB BILL ONLY [facility] [address] [place] [address], * BUCKRAM SEWER THIN PREP PAP SCREEN IMAGED (09/02/2023 2:40 PM CDT) Case Report Gynecologic Cytology Report ? Case: [id number] ? Authorizing Provider: ??Radha Bills MD ??Collected: ? 09/02/2023 1440 ? Ordering Location: ? [facility] ?Received: ?09/06/2023 0941 ? First Screen: ?Meme, Jessica ? Rescreen: ?Russ, Carol ? Pathologist: ? Mica Yates MD ? Specimen: ?BUCKRAM SEWER ThinPrep Vial Screening, Cervical ? 09/19/2023 6:18 PM CDT [facility] INTERPRETATION/ RESULT NEGATIVE FOR INTRAEPITHELIAL LESION OR MALIGNANCY (NIL) (none) 09/19/2023 6:18 PM CDT [facility] R Endometrial cells in a woman more than 45 years of age. 09/19/2023 6:18 PM CDT [facility] EDUCATIONAL NOTES & SUGGESTIONS Endometrial cells after the age of 45, particularly out of phase or after menopause, may be associated with benign endometrium, hormonal alterations and less commonly with endometrial uterine abnormalities. Endometrial cells correlate with the menstrual history provided. 09/19/2023 6:18 PM CDT [facility] SPECIMEN ADEQUACY Satisfactory for evaluation Endocervical component present 09/19/2023 6:18 PM CDT [facility]- [facility] LAB[facility] HPV REQUEST HPV and PAP 09/19/2023 6:[address] [facility] Date of LMP 09/01/2023 09/19/2023 6:[address] [facility] Last Pap Date 07/21/2017 09/19/2023 6:[address] [facility] Last Pap Result NIL 6:[address] [facility] Menstrual Status Abnormal bleeding 09/19/2023 6:[address] [facility] Comment:Postmenopausal [place] Bx Done Today No 09/19/2023 6:[address] [facility] Additional Information 09/19/2023 6:[address] [facility] Comment: Interpreted at [facility] - [address], [place] [address] Automated Review Successful 09/19/2023 6:18 PM CDT [facility] Comment:Specimen processed s uccessfully by automated secondary spanish teacher device, ThinPrep Imaging System, [employer] ANCILLARY TESTING BUCKRAM SEWER HPV Ordered, Please see separate report 09/19/2023 6:18 PM CDT [facility] Note The pap test is a screening technique, not a diagnostic procedure. It is used primarily to screen for squamous cancers and precursor lesions. Published studies have shown that it is subject to both false negative and false positive results. The pap test should not be used as the sole means to diagnose or exclude pre-malignant and malignant lesions. 09/19/2023 6:[address] [facility] Other (Cervical) 09/02/2023 2:40 PM CDT 09/06/2023 9:41 AM CDT Radha Bills MD PATHOLOGY/CYTOLO GY [facility] [address] [place] [address], [place] * PATH TISSUE EXAM (09/02/2023 2:40 PM CDT) Case Report Pathology Report ?Case: [id number] ? Authorizing Provider: ??Radha Bills MD ??Collected: ? 09/02/2023 1440 ? Ordering Location: ? [facility] ?Received: ?09/05/2023 1915 ? Pathologist: ? Mary Hall MD ? Specimen: ?Endometrial Biopsy ? 09/07/2023 11:55 AM CDT [facility] Final Diagnosis A) ENDOMETRIUM, BIOPSY: 1. Inactive endometrium with abundant breakdown 2. Negative for chronic endometritis 3. Negative for hyperplasia, atypia, and malignancy 09/07/2023 11:55 AM T [facility] Clinical Information Patient on Tamoxifen, had been without period, now with vaginal bleeding. 09/07/2023 11:55 AM T [facility] Gross Description A) Received in formalin, labeled with the patient's name and endometrial BX, is a 3.0 x 2.0 x 0.3 cm aggregate of clotted blood. ??The specimen is entirely submitted in 1 cassette. TLF 09/05/2023 09/07/2023 11:55 AM CDT [facility] Microscopic Description The final diagnosis is based on microscopic examination of appropriate sections of all specimens. 09/07/2023 11:55 AM CDT [facility] Additional Information Interpreted at [facility] - [address], [place] [address] 09/07/2023 11:55 AM CDT [facility] Other (Endometrial Biopsy) 09/02/2023 2:40 PM CDT 09/05/2023 7:15 PM CDT Radha Bills MD PATHOLOGY/CYTOLO GY Performing Organization Address City/[facility]/ZIP Co de Phone Number [facility] [address] [place] [id number], [place] * HPV HIGH RISK (09/02/2023 2:40 PM CDT) TYPE 16 Negative Negative 09/07/2023 5:14 PM CDT [facility] TYPE 18 Negative Negative 09/07/2023 5:14 PM CDT [facility] OTHER HIGH RISK TYPES Negative Negative 09/07/2023 5:14 PM CDT [facility] Other (Cervical) 09/02/2023 2:40 PM CDT 09/06/2023 9:41 AM CDT Narrative [facility] - 09/07/2023 5:14 PM CDT HPV types 16, 18, 31, 33, 35, 39, 45, 51, 52, 56, 58, 59, 66 and 68 DNA were undetectable or below the pre-set threshold. Methodology: [employer] 4800 HPV Test Radha Bills MD MICROBIOLOGY Performing Organization Address [facility]/ZIP Co de Phone Number [facility] [address] [place] [address], [place] * SCAN-ULTRASOUND REPORT (09/01/2023 12:00 AM CDT) Anatomical Region Laterality Modality Other Scanner OTHER * LIPID PANEL W REFLEX MEASURED LDL (07/22/2021 9:05 AM CDT) CHOLESTEROL,TOTAL 180 100 - 199 mg/dL 07/22/2021 4:20 PM CDT [facility] TRIGLYCERIDES 62 <150 mg/dL 07/22/2021 4:20 PM CDT [facility] HDL CHOLESTEROL 61 >40 mg/dL 4:20 PM CDT [facility] NON-HDL CHOLESTEROL 119 <145 mg/dl 07/22/2021 4:20 PM CDT [facility] CHOL/HDL RATIO 2.95 <4.50 07/22/2021 4:20 PM CDT [facility] LDL CHOLESTEROL 107 <=130 mg/dL 07/22/2021 4:20 PM CDT [facility] VLDL CHOLESTEROL 12 <=30 mg/dL 07/22/2021 4:20 PM CDT [facility] PROVIDER ORDERED STATUS RANDOM 07/22/2021 4:20 PM CDT [facility] Blood BLOOD SPECIMEN / Unknown Venipuncture / Unknown 07/22/2021 9:05 AM CDT 07/22/2021 9:08 AM CDT Any Anne MD CHEMISTRY [facility] [address] [place] [address], * SCAN-MAMMOGRAPHY REPORT (07/15/2020 12:00 AM TRANSFORMER SHOP SUPERVISOR) Anatomical Region Laterality Modality Other Scanner OTHER from Last 3 Months or Most Recently Relevant to Health Maintenance Care Teams Sample Card Maker Relationship Specialty Start Date End Date Any Anne MD [address] [place] [address] PCP - General Family Practice 05/17/17
[2023-09-20] MEDS: LACTATED RINGERS 1000 ML 1,000 ML 100 ML IV (07:05)
[2023-09-20 07:10] VITALS: BMI 34.2
[2023-09-20 07:17] VITALS: BP 130/83; PULSE 79; RESP 16; TEMP 36.6; O2SAT 98
[2023-09-20] MEDS: SODIUM CHLORIDE 0.9 % (FLUSH) 10 ML SYRINGE IVF (07:26)
[2023-09-20 07:34] LABS: Hemoglobin* 12.7 gm/dL (12.0-16.0)
[2023-09-20 07:36] LABS: Ur HCG Qualitative* Negative (Negative)
--- NOTE | 2023-09-20 08:14 | W.PM.H&PU ---
History & Physical Update History & Physical Update H&P Reviewed and patient assessed: No changes noted H&P Updates: Ms. Bhatia is a 53yo seen in pre-op prior to planned hysteroscopy, dilation and curettage, IUD insertion. She is s/p pre-op clearance with PCP, no interval health updates noted. We reviewed surgical plan in depth. She is agreeable to mirena IUD insertion for endometrial protection (on tamoxifen). Discussed risks including bleeding, infection, damage to surrounding structures and medical complications of surgery/anesthesia (VTE, heart attack, stroke). All questions answered. Written consent re-signed. Specimen to be sent for pathologic evaluation. 2 week post-op visit scheduled.
--- NOTE | 2023-09-20 08:26 | P.GYNPRC_ITS ---
Procedure Note Time Seen by Provider: 09:19 Date of procedure: 09/20/23 Will [facility] bill your pro fee for this procedure?: Yes Pre-op diagnosis: Postmenopausal bleeding Thickened endometrial stripe Tamoxifen therapy for history breast cancer Post-op diagnosis: Same Procedure: Hysteroscopy, polypectomy, dilation and curettage, IUD insertion Anesthesia: MAC and local Complications: None Surgeon: Jarett Bills MD Estimated blood loss (mL): 5 IV fluids (mL): 900 Urine Output (mL): 100 Pathology: specimen obtained, sent to pathology Condition: stable Disposition: same day Findings: Unremarkable external genital exam Cervix is pink without lesion Endometrial cavity notable for proliferative appearing endometrium versus sessile polypoid tissue throughout Unremarkable bilateral tubal ostia Procedure Description: Procedure in detail: Patient was taken to the operating room with IV running. She was positioned in dorsal lithotomy position with her legs fully supported in Yellofin stirrups. Monitored anesthesia care was administered. She was prepped and draped in the usual sterile fashion. Exam under anesthesia was performed for the above-noted findings. Speculum was inserted. Cervix visualized and grasped along the anterior lip with a single-tooth tenaculum. Paracervical block was performed in the usual fashion with a total of 10 mL of 0.5% bupivacaine. Cervix was serially dilated to accommodate the TRUCLEAR hysteroscope. This was assembled with saline inflow and outflow in place. The line was flushed of bubbles. The hysteroscope was advanced through the cervix into the endometrial cavity for the above noted findings. The tissue morcellator was then inserted through the operating channel. Window lock was performed. Under direct visualization, the endometrial cavity was circumferentially curetted with the tissue morcellator. Sessile polypoid tissue was noted throughout versus proliferative endometrium, easily resected circumferentially. The hysteroscope and morcellator were then removed from the uterus. Uterus was sounded to 9 cm. Mirena IUD insertion was performed advanced to fundus, uncomplicated. Diagnostic hysteroscopy performed to confirm deployment of both arms of the IUD and proper placement at the uterine fundus. Hysteroscope was removed making sure to not dislodge IUD positioning. Strings were trimmed at 3 cm in length. Tenaculum was removed from the anterior lip of cervix. Hemostasis was noted with gentle pressure and silver nitrate. Patient tolerated procedure well. She was taken to recovery area in stable condition. Surgical GB of performed. QBL 5 mL, urine output 100 mL, IV fluids 900 mL, fluid deficit 100mL. Specimen is endometrial curettings, sent for pathologic evaluation.
[2023-09-20] MEDS: BUPIVACAINE 0.5% 30 ML INJECTION (09:10)
[2023-09-20] MEDS: SILVER NITRATE APPLICATOR 1 EACH STICK..EA. TOPICAL (09:10)
[2023-09-20 09:25] VITALS: BP 113/74; PULSE 79; RESP 16; TEMP 36.2; O2SAT 97
--- NOTE | 2023-09-20 09:29 | W.ANESCHARGE ---
Anesthesia Charges Start Date/Time Anesthesia Start Date: 09/20/23 Anesthesia Start Time: 08:40 Stop Date/Time Anesthesia Stop Date: 09/20/23 Anesthesia Stop Time: 09:27
[2023-09-20 09:30] VITALS: BP 116/87; PULSE 71; RESP 16; O2SAT 97
[2023-09-20 09:45] VITALS: BP 118/74; PULSE 70; RESP 16; O2SAT 97
[2023-09-20 10:00] VITALS: BP 120/77; PULSE 72; RESP 16; O2SAT 97
--- NOTE | 2023-09-20 10:16 | W.ANESCHARGE ---
Anesthesia Charges Start Date/Time Anesthesia Start Date: 09/20/23 Anesthesia Start Time: 08:40 Stop Date/Time Anesthesia Stop Date: 09/20/23 Anesthesia Stop Time: 09:27
== END 2023-09-20 10:33 | disposition home or self-care (01) ==
LOC: OR 06:54
PROVIDERS: PCP Family Medicine; Visit Provider Obstetrics & Gynecology
PROC: 0UDB8ZZ Extraction of Endometrium, Via Natural or Artificial Opening Endoscopic (ICD-10-PCS; CPT 58558; principal; 2023-09-20 08:15)
DX: N95.0 Postmenopausal bleeding (principal); R93.89 Abnormal findings on diagnostic imaging of other specified body structures; Z85.3 Personal history of malignant neoplasm of breast; Z30.430 Encounter for insertion of intrauterine contraceptive device; N84.0 Polyp of corpus uteri
CPT/HCPCS: 58558; 58300; 00952; 36415; 81025; 85018; 86850; 86900; 86901; 88305; A9270; J0665; J1100; J1885; J2250; J2405; J2704; J3010; J7120; J7298